=== PATIENT | female | born 1945 | race Caucasian/White ===

== ENCOUNTER → 2018-01-06 15:21 | Outpatient (CLI) | payer MEDICARE, BC, OTHER, SELFPAY ==
[2018-01-06 16:49] LABS: TSH (W/Ref FT4) 2.27 uIU/mL (0.358-3.74)
[2018-01-07 06:35] LABS: Vitamin D 25 Total 55.4 ng/ml (30-100)
== END ==
PROVIDERS: PCP Nurse Practitioner Family; Visit Provider Nurse Practitioner Family
DX: E55.9 Vitamin D deficiency, unspecified (principal); E03.9 Hypothyroidism, unspecified
CPT/HCPCS: 36415; 82306; 84443

== ENCOUNTER 2018-01-26 13:20 | Outpatient (RCR) | payer MEDICARE, BC, OTHER, SELFPAY ==
--- NOTE | 2018-01-26 13:30 | IE_ITS ---
Date: 01/26/18 Referring: STARR Leblanc M.D. Diagnosis: LBP, radiating L lateral leg P.T. Diagnosis: Same along with trochanteric bursitis of the L hip. SUBJECTIVE: History of Present Illness: Jordan complains of intermittent discomfort throughout the lateral aspect of the L hip, thigh and lower leg, occasional LBP. This generally occurs when standing after prolonged sitting or lying, as well as when taking the first dozen steps or so, She tends to feel better with short distance walking, increases with prolonged walking and standing. Does not generally have pain in sitting position. Will occasionally awaken her from a sound sleep, especially if lying on her L side. No pain with coughing or sneezing. The patient is a 72 year old female who has had episodic LBP, has had chiropractic treatments on a regular basis throughout the years. In May, she slipped on ice and fell and traumatized her low back. This eventually resolved. She was doing fine until 6 months ago when she developed an insidious onset of L sciatica. No different now than at onset. Has had a few chiropractic treatments and some massage therapy. No imaging tests. Pain Ratin/10 Pain Location: throughout the L lower lumbar area to the lateral aspect of the L hip, thigh, lower leg, occasionally into the knee,. Prior Level of Function: Independent with all ADL's. Current Level of Function: Discomfort with lifting heavy weights from the floor , walking for more than a 1/4 mile, standing for more than 1/2 hour as well as traveling for long distances. Previous Treatment: Chiropractic and massage therapy. 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 Works 2 days a week at the [employer]. Comorbidities: Hypertension, hx of breast cancer, hypothyroidism, osteoarthritis and kidney problems. Falls in the last year: ____ No __X__Yes - How many? __IN May__ - (if over 2, balance SM needs to be completed) Reported hospitalizations in the last year - __X__ No ____ Yes - Dates of admission/reason: Medications: Anti-hypertensives, Levothyroxine Quality of Life: ____ Excellent __X__ Good ____ Fair ____ Poor Standardized Measures: MOLBPDQ: __30%__ OBJECTIVE: Posture: (-) lateral shift, mild thoracic kyphosis. Observation: (behavior, atrophy, skin color, etc.) Pleasant, no abnormal pain behavior noted. Gait: Ambulates without antalgia, is able to walk on heel and toes without weakness. Palpation: Has tenderness to palpation throughout the L pelvic brim, over the QL, over the piriformis, gluteus medius, particularly over the greater trochanter of L hip when compared to the R. ROM: Her lumbar movements flexion distance between fingertips and floor is 4-5 with end range drawing throughout the hamstring, extension is at +15 degrees and non-painful. Sidebending to the R causes some drawing throughout the L pelvic brim and sidebending to the L causes drawing throughout the R pelvic brim. Hypomobile with sidegliding, but non-painful. Her AA hip motion is non-irritable as well as knee motion Joint Accessory Motion: Hypomobility with PA glides to the thoracic and lumbar spine, but these are non-painful. Strength: Has full motor control throughout with some mild weakness with the L gluteus medius and herlinda at +4 to -5/5. (-) active prone extension. Neuro: Hyporeflexive. Sensation is intact to light touch. Motor 5/5. Special Tests: (-) SLR bilaterally with hamstring length at approximately 70 degrees. (-) Obers test, (-) slump test. Treatment: Today consisted of the evaluation along with development of a home program. IE: [id number] Therapeutic procedures ([id number]). Direct treatment time: 60 MINS Total treatment time: 60 MINS ASSESSMENT: Patient is a 72-year-old FEMALE, referred for PT services with the diagnosis of L sciatica. Patient presents with clinical signs and symptoms consistent with diagnosis along with trochanteric bursitis of the L hip, as demonstrated by the following impairment level findings: Localized tenderness throughout the L lumbopelvic structures, but particularly over the greater trochanter of the L hip. Impairments are contributing to the following functional limitations: Difficulty standing more than 1/2 hour, walking for more than 1/2 mile. Patient is assessed as: __X__ Low 46657 ____ Moderate 28452 ____ High 01850 complexity, based on the following: History: (list): 6 month hx of L sciatica, probably related to a trochanteric bursitis, along with other myofascial trigger points throughout the lumbopelvic region. See comorbidities and social history. Examination: (list): x See above for functional limitations and impairments. Presentation: Stable . X Evolving Unstable Decision-Making: X Low complexity X Moderate complexity High complexity % Disability based on MOLBPDQ of 30%f __x__ Patient requires skilled PT intervention to remediate the above functional limitations to return to: __x__ Premorbid level of function Prognosis: ____ Excellent __x__ Good ____ Fair ____ Poor G-Codes (fill in modifier after appropriate code): Patient's primary functional limitation is in the category of: __X__ Mobility - walking and moving around : [id number] Projected goal: __X__ Mobility - walking and moving around: [id number] STG: __6__ weeks. 1: Clear out the myofascial trigger points of the lumbopelvic region,along with strengthening the L hip musculature, particularly gluts and core in hopes she will be able to walk greater than 1 mile and stand for greater than 1 hour. 2: Sleep without interruption due to pain. LTG: __12__ weeks. 1: Return to premorbid level of function. PLAN: Session today consisted of the evaluation along with issuing her a written and illustrated HEP consisting of gentle soft tissue stretching to the lumbopelvic ITB region along with strengthening exercises to the gluts, ice the trochanteric area of the L hip as needed. Her as a tens unit, she can try that also, see if it gives her symptomatic relief. She may benefit from nsaids, I encourage her to discuss this with her PCP. I will see her 2x a week for the next 2 weeks for manual mobilization of soft tissue structures to clear out the myofascial trigger point, eventually core and hip strengthening exercises. Modify program as her symptoms tolerate. Thank you for this referral. Please do not hesitate to contact me with any questions or concerns regarding this patient's plan of care. *Mei, please sign this evaluation if you are in agreement with the above stated goals and plan of care. cc: STARR Leblanc
== END 2018-01-29 23:59 | disposition home or self-care (01) ==
LOC: PT 13:20
PROVIDERS: PCP Nurse Practitioner Family; Referring Provider Internal Medicine Hematology & Oncology; Visit Provider Internal Medicine Hematology & Oncology
DX: M54.5 Low back pain (principal); M70.62 Trochanteric bursitis, left hip
CPT/HCPCS: 97110; 97161; G8978

== ENCOUNTER 2018-03-22 15:54 | Outpatient (CLI) | payer MEDICARE, BC, OTHER, SELFPAY ==
--- NOTE | 2018-03-22 11:59 | DI.RAD_ITS ---
SYMPTOMS/DIAGNOSIS: ACUTE LOW BACK PAIN, S/P FALL, ? FX, M54.5 LUMBAR SPINE: Comparison is made with [id number]. Degenerative disc changes are seen, greatest at L 4 - 5 on the right where there are prominent endplate osteophytes and asymmetric disc space narrowing. There is only a minimal scoliosis. There is mild narrowing of the L 2 - 3 disc space mainly anteriorly. Endplate osteophytes are seen throughout. The findings are not significantly changed from the previous exam. No spondylolysis or spondylolisthesis is seen. The aorta is calcified and normal in diameter. IMPRESSION: Stable degenerative changes, greatest at L 4 - 5.
== END 2018-03-22 16:14 ==
PROVIDERS: PCP Nurse Practitioner Family; Visit Provider Nurse Practitioner Family
DX: M54.5 Low back pain (principal); M51.36 Other intervertebral disc degeneration, lumbar region; M25.78 Osteophyte, vertebrae
CPT/HCPCS: 72110

== ENCOUNTER 2018-04-23 00:33 | Outpatient (CLI) | payer MEDICARE, BC, OTHER, SELFPAY ==
--- NOTE | 2018-04-23 09:40 | DI.MRI_ITS ---
SYMPTOM/DIAGNOSIS: SIZE< DATES, G26.843 SYMPTOM/DIAGNOSIS: RADICULAR PAIN WITH BLADDER INCONTINENCE M54.16 MRI LUMBAR SPINE: Comparison is made with plain films dated 22 March 2018. T1, T2 and STIR sagittal, T1, T2 axial and T1 coronal sequences were performed. There is a compression fracture of L3 of the superior end plate with marrow edema. There is 3 mm of retropulsion resulting in mild canal stenosis in the AP dimension No underlying pathologic lesion is visible. No additional compression fractures are seen.There are degenerative disc changes throughout, greatest at L4-5. There is no spondylolysis or spondylolisthesis. The conus medullaris appears intact. Bilateral renal cysts are incidentally noted. IMPRESSION: Compression fracture of L3 approximately 25% loss of height. There is a 3 mm posterior retropulsion at the superior end plate creating a mild central canal stenosis.
--- NOTE | 2018-04-23 17:01 | DI.VRAD_ITS ---
EXAM: MR Lumbar Spine Without Intravenous Contrast. EXAM DATE/TIME: 04/23/2018 9:38 AM CLINICAL HISTORY: 72 years old, female; Pain; Low back pain; Patient HX: Radicular pain with bladder incontinence. TECHNIQUE: Multiplanar magnetic resonance images of the lumbar spine without intravenous contrast. COMPARISON: CR XR lumbar spine complete 03/22/2018 11:39 AM FINDINGS: Vertebrae: Acute compression fracture superior endplate L3, with 25-30% loss of anterior height. 2-3 mm retropulsion with mild resulting central canal narrowing. No other fractures identified. Marrow: Degenerative endplate marrow signal changes. Alignment anatomic. Spinal cord: Normal signal. No cord compression. DISCS/SPINAL CANAL/NEURAL FORAMINA: T12-L1: No stenosis. L1-L2: Degenerative disc and spondylitic changes. 2 mm broad-based central disc protrusion. No central canal stenosis. Mild foraminal narrowing. L2-L3: Degenerative disc and spondylitic changes. Central annular tear without focal herniation. Acute L3 compression fracture noted with 2-3 mm of retropulsion. Mild multifactorial central canal narrowing. No significant foraminal stenosis. L3-L4: Degenerative disc and spondylitic changes. Borderline mild central canal narrowing. Mild bilateral foraminal stenosis. L4-L5: Degenerative disc and spondylitic changes. Asymmetric right-sided disc bulge and endplate ridging. Mild central canal stenosis. Moderate bilateral foraminal stenosis. L5-S1: Degenerative disc and spondylitic changes. Mild right and [id number] left foraminal stenosis. Soft tissues: Unremarkable. IMPRESSION: 1. Acute compression fracture superior endplate L3, with 25-30% loss of anterior height. 2-3 mm retropulsion with mild resulting central canal narrowing. 2. Degenerative changes as described. Dictated and Authenticated by: Kraig Madden MD. Ordering:JONATHAN ELLISON MD
== END 2018-04-23 00:53 ==
PROVIDERS: PCP Nurse Practitioner Family; Visit Provider Family Medicine
DX: M54.16 Radiculopathy, lumbar region (principal); M48.56XD Collapsed vertebra, not elsewhere classified, lumbar region, subsequent encounter for fracture with routine healing; R39.81 Functional urinary incontinence; M48.061 Spinal stenosis, lumbar region without neurogenic claudication; M47.26 Other spondylosis with radiculopathy, lumbar region
CPT/HCPCS: 72148

== ENCOUNTER 2018-05-13 01:32 | Outpatient (CLI) | payer MEDICARE, BC, OTHER, SELFPAY ==
--- NOTE | 2018-05-13 13:42 | DI.US_ITS ---
SYMPTOMS/DIAGNOSIS: SENSATION OF INCOMPLETE EMPTYING, DOUBLE VOIDING, R33.9, S/P BLADDER SURGERY FOR POLYPS IN 1969 RENAL ULTRASOUND: Routine examination. The right kidney measures 9.8 cm long. There is normal blood flow. No solid renal mass, calculus or obstruction is seen. There is a 2.4 x 2.3 x 1.7 cm simple cyst in the mid pole of the right kidney. The left kidney measures 9.2 cm long. No solid renal mass, calculus or obstruction is seen. There is a 3.8 x 3.5 x 3.7 cm cyst in the inferior pole of the left kidney. The prevoid urinary bladder volume is 30 cc. The bladder wall appears smooth. Both ureteral jets were visualized. Postvoid urinary bladder volume was 3 cc. IMPRESSION: 1. No significant postvoid urinary bladder volume. 2. Bilateral renal cysts.
== END 2018-05-13 01:52 ==
PROVIDERS: PCP Nurse Practitioner Family; Visit Provider Nurse Practitioner Family
DX: R33.9 Retention of urine, unspecified (principal); R39.198 Other difficulties with micturition; N28.1 Cyst of kidney, acquired
CPT/HCPCS: 76770

== ENCOUNTER 2019-02-07 11:10 | Outpatient (CLI) | payer MEDICARE, BC, OTHER, SELFPAY ==
[2019-02-07 13:44] LABS: ALT 34 U/L (14-59); AST 35 U/L (15-37); Albumin 4.1 g/dL (3.4-5.0); Alkaline Phosphatase 107 U/L (46-116); BUN 15 mg/dL (7-18); Bilirubin, Total 0.8 mg/dL (0.2-1.0); Calcium 9.8 mg/dL (8.5-10.1); Calculated LDL 99 mg/dL; Chloride 97 mmol/L (98-107); Cholesterol 203 mg/dL (50-200); Glucose 83 mg/dL (70-100); HDL Cholesterol 89 mg/dL (40-60); Potassium 3.5 mmol/L (3.5-5.1); Sodium 138 mmol/L (136-145); TSH (W/Ref FT4) 5.99 uIU/mL (0.36-3.74); Total Protein 7.5 g/dL (6.4-8.2); Triglyceride 78 mg/dL (30-150)
[2019-02-07 14:08] LABS: FREE T4 1.19 ng/dL (0.76-1.46)
== END 2019-02-07 11:30 ==
PROVIDERS: PCP Nurse Practitioner Family; Visit Provider Nurse Practitioner Family
DX: I10 Essential (primary) hypertension (principal); E03.9 Hypothyroidism, unspecified; E78.5 Hyperlipidemia, unspecified
CPT/HCPCS: 36415; 80053; 80061; 84439; 84443

== ENCOUNTER 2019-04-04 13:42 | Outpatient (CLI) | payer MEDICARE, BC, OTHER, SELFPAY ==
[2019-04-04 15:22] LABS: TSH (W/Ref FT4) 3.89 uIU/mL (0.36-3.74)
[2019-04-04 15:47] LABS: FREE T4 1.19 ng/dL (0.76-1.46)
== END 2019-04-04 14:02 ==
PROVIDERS: PCP Nurse Practitioner Family; Visit Provider Nurse Practitioner Family
DX: E03.9 Hypothyroidism, unspecified (principal)
CPT/HCPCS: 36415; 84439; 84443

== ENCOUNTER → 2019-05-12 11:08 | Outpatient (BNVA) | payer MEDICARE, BC, OTHER, SELFPAY | PROVIDERS: PCP Nurse Practitioner Family; Referring Provider Nurse Practitioner Family; Visit Provider Physical Therapy Assistant | DX: Z12.11 Encounter for screening for malignant neoplasm of colon (principal); Z86.010 Personal history of colon polyps; I12.9 Hypertensive chronic kidney disease with stage 1 through stage 4 chronic kidney disease, or unspecified chronic kidney disease; N18.3 Chronic kidney disease, stage 3 (moderate) ==

== ENCOUNTER 2019-05-23 07:52 | Day surgery (SDC) | payer MEDICARE, BC, OTHER, SELFPAY ==
[2019-05-23 08:04] VITALS: BP 168/88; PULSE 71; RESP 16; TEMP 36.4; O2SAT 98
[2019-05-23] MEDS: Lactated Ringers 1,000 ML 80 ML IV (08:36)
--- NOTE | 2019-05-23 09:11 | W.PM.DSUDISC ---
Discharge Plan Disposition Patient Disposition: HOME Condition: Good Discharge Details Reason For Visit: Colonoscopy Attending Provider: Elva Mckeon Primary Care Provider: Mei Herrera Home Meds and New Rx's Prescriptions: Continued losartan 25 mg tablet 25 mg PO DAILY Qty: 90 RF: 3 ibuprofen 600 mg tablet 600 mg PO TID PRN (Reason: pain) Qty: 30 RF: 0 levothyroxine 100 mcg tablet 100 mcg PO DAILY Qty: 90 RF: 0 mometasone [Nasonex] 50 mcg/actuation spray,non-aerosol 1 - 2 spray NS DAILY PRN (Reason: nasal congestion) Qty: 17 RF: 3 aspirin [Aspir-81] 81 MG tablet,delayed release (DR/EC) 81 mg PO DAILY RF: 0 omega-3 fatty acids-fish oil 1 EACH capsule 1 ea PO DAILY RF: 0 Os-Brandan 500 + D3 1 EACH tablet,chewable 1 ea PO DAILY RF: 0 vitamin A 8,000 UNIT capsule 8,000 units PO DAILY RF: 0 Varicella-Zoster Ge/As01b/Pf [Shingrix Vial Kit] 50 MCG INJ 50 mcg IM ONCE Qty: 1 RF: 1 fluoxetine 20 mg capsule 20 mg PO DAILY Qty: 90 RF: 3 atorvastatin 80 mg tablet 80 mg PO DAILY Qty: 90 RF: 3 omeprazole 20 mg capsule,delayed release(DR/EC) 20 mg PO DAILY Qty: 90 RF: 3 hydrochlorothiazide [Microzide] 12.5 mg capsule 12.5 mg PO DAILY Qty: 90 RF: 3 trazodone 50 mg tablet 50 mg PO HS Qty: 90 RF: 3 acetaminophen [Tylenol Extra Strength] 500 mg Tablet 500 mg PO Q4H PRNRF: 0 naproxen sodium [Aleve] 220 mg Capsule 220 mg PO Q12H PRNRF: 0 Discontinued polyethylene glycol 3350 17 gram/dose powder 238 g PO ONCE Qty: 238 RF: 0 bisacodyl [Dulcolax (bisacodyl)] 5 mg tablet,delayed release (DR/EC) 5 mg PO ONCE Qty: 4 RF: 0 Discharge Instructions Additional Instructions: Findings: Two small polyps were removed. My office will contact you with biopsy results. Follow up: Plan for a colonoscopy in 3 years (pending biopsy results.) Please call if you develop: fevers >101.5 Nausea or Vomiting Abdominal pain that is not transient DAY SURGERY UNIT POST COLONOSCOPY INSTRUCTIONS 1. Because there will be medication in your system for the next 24 hours, you may feel a little sleepy. Your coordination will be affected. Therefore: a. Do not drive or operate dangerous equipment for 24 hours. b. Do not drink alcohol beverages for 24 hours (not even beer). c. Plan to go home and rest for the day. 2. Generally there are no restrictions on your activity after a day or so has gone by, but you may feel a bit fatigued for a few days. 3 After you arrive home you may have a light meal and return to a normal diet as you can tolerate it without feeling sick to your stomach. 4. After surgery, you may feel pain or discomfort. This should be only transient, but if it persists please contact your doctor. 5. If there are any questions regarding the findings of your procedure, please feel free to contact your doctor. 6. If you are unable to contact your doctor with a problem, contact the hospital at [phone]. 7. Continue all your regular medications unless directed otherwise. I understand the above instructions and have no questions. Signature of Patient or Responsible Adult Escort Date/Time Name of Responsible Adult Escort Signature of Nurse Date/Time Activity:: Activity as Tolerated Diet:: As Tolerated Discharge Orders Discharge Orders: Discharge Order (Routine); Ordered 05/23/19 Ordered By: Elva Mckeon DS: Diagnosis Discharge Diagnosis (1) Colon polyps: Status: Acute
--- NOTE | 2019-05-23 09:31 | BOWEL_PTH ---
PATIENT: Kourtney Aguilar LOC: [facility] U#:[id number] AGE/SX: 73/F ROOM: RE05/23/[address]: Elva Mckeon MD : 1945 BED: DIS: 05/23/2019 SPEC #: [id number] RECD: 05/23/19 13:05 STATUS: GLORIA REQ #: [id number] LITO: 05/23/19 09:[address]: Elva Mckeon DEPT: Surgical Specimen RECD BY: Lorraine Martinez ENTERED: 05/23/19 13:05 SP TYPE: Bowel OTHR DR: Mei Herrera APRN Tissues: 1 - BIOPSY BOWEL Procedures: GROSS AND MICRO LEVEL 4 Comments: [id number]
[2019-05-23 10:35] VITALS: BP 154/83; PULSE 66; RESP 16; TEMP 36.2; O2SAT 98
--- NOTE | 2019-05-24 09:45 | COLE_ITS ---
REPORT OF OPERATIVE PROCEDURE DATE OF PROCEDURE May 23, 2019 PREOPERATIVE DIAGNOSES History of colon polyps. POSTOPERATIVE DIAGNOSES Colon polyps. PROCEDURES Colonoscopy with snare polypectomy. SURGEON Elva Mckeon M.D. ANESTHESIA General. INDICATION This is a 73-year-old woman whose last colonoscopy in 2017 done at [facility] showed polyps. She was a dvised to have a followup in one year due to the presence of multiple polyps. She has no symptoms or family history of colon cancer. PROCEDURE DESCRIPTION She was placed in the left Poole position. Propofol was titrated to sedation. Digital rectal examinati on revealed no abnormalities. The scope was advanced to the cecum without difficulty. The ileocecal v alve and the appendiceal orifice were clearly identified. At the appendiceal orifice, there was polyp oid tissue that was removed with the snare without cautery due to its delicate location. I did place a hemostatic clip to prevent bleeding since cautery was not utilized. The specimen was retrieved for Pathology. The scope was slowly withdrawn with a diminutive polyp identified in the ascending colon. This was removed with the snare, but not retrieved due to its small size. No other abnormalities were seen throughout the ascending, transverse, descending, sigmoid colon or rectum including on retrofle xed view. I did not see any areas of tattooing. She tolerated the procedure well and was stable to Re covery. It is anticipated she will need a colonoscopy in three years pending biopsy results. CC: Mei Herrera N.P.
== END 2019-05-23 11:40 | disposition home or self-care (01) ==
PROVIDERS: PCP Nurse Practitioner Family; Visit Provider Surgery
PROC: 0DJD8ZZ Inspection of Lower Intestinal Tract, Via Natural or Artificial Opening Endoscopic (ICD-10-PCS; CPT 45378; principal; 2019-05-23 09:00)
DX: D12.0 Benign neoplasm of cecum; I10 Essential (primary) hypertension; N18.3 Chronic kidney disease, stage 3 (moderate); Z12.11 Encounter for screening for malignant neoplasm of colon; D12.6 Benign neoplasm of colon, unspecified
CPT/HCPCS: 45385; 88305

== ENCOUNTER → 2019-06-09 10:08 | Outpatient (BNVA) | payer MEDICARE, BC, OTHER, SELFPAY | PROVIDERS: PCP Nurse Practitioner Family; Referring Provider Nurse Practitioner Family; Visit Provider Surgery | DX: D12.0 Benign neoplasm of cecum (principal); I12.9 Hypertensive chronic kidney disease with stage 1 through stage 4 chronic kidney disease, or unspecified chronic kidney disease; N18.3 Chronic kidney disease, stage 3 (moderate); Z48.815 Encounter for surgical aftercare following surgery on the digestive system | CPT/HCPCS: 99214 ==

== ENCOUNTER 2019-10-28 08:06 | Outpatient (CLI) | payer MEDICARE, BC, OTHER, SELFPAY ==
[2019-10-29 12:09] LABS: COVID-19 RT-PCR UVMMC Result Negative (Negative)
== END 2019-10-28 08:26 ==
PROVIDERS: PCP Nurse Practitioner Family; Visit Provider Surgery
DX: Z11.59 Encounter for screening for other viral diseases (principal); Z01.818 Encounter for other preprocedural examination
CPT/HCPCS: U0003

== ENCOUNTER 2019-11-01 06:14 | Inpatient (IN) | payer MEDICARE, BC, OTHER, SELFPAY ==
[2019-11-01] VITALS (8 sets, daily range): BP systolic 99–150; BP diastolic 41–86; PULSE 71–78; RESP 12–26; TEMP 36.3–36.5; O2SAT 96–100
[2019-11-01] MEDS: metroNIDAZOLE 1,000 MG/200 ML BAG 200 MG IVPB (06:50)
[2019-11-01] MEDS: Lactated Ringers 1,000 ML 80 ML IV (06:50)
--- NOTE | 2019-11-01 06:56 | W.PM.HP.N ---
Date of service: 11/01/19 Time of Service: 06:57 Assessment and Plan Assessment and plan (1) Cecal polyp: Status: Acute Assessment and plan: We discussed the options of a colonoscopy in 6-12 months or excision of the area with a laparoscopic cecectomy. She has already had a polyp removed from the same location 2 years ago and prefers not to have such frequent colonoscopies. We agreed to proceed with surgery. The risks of infection, bleeding, hernia, leak discussed. There is a small possibility a small incision will need to be made if an ileocecectomy needs to be done. She should not lift more than 15 pounds for one month postop. She will still need to have a colonoscopy in 3 years due to the presence of polyps in other locations. History of Present Illness Narrative: This patient had a polyp removed in the cecum earlier this year at the appendiceal orifice and showed a tubulovillous adenoma. This was not aggressively removed due to it's location. Her colonoscopy report from 12/2016 at [facility] is reviewed. A 15mm appendiceal orifice polyp was removed at that time with pathology showing a tubular adenoma. Additional polyps from the cecum, ascending and descending colon were removed with benign pathology. No FH of colon cancer or symptoms. Review of Systems All systems reviewed & are unremarkable except as noted in HPI and below [facility] Medical History Allergic rhinitis, unspecified (Chronic 08/13/12) Breast cancer Chronic kidney disease (CKD), stage III (moderate) (Chronic) 10/2014: renal US neg, cysts; 05/2018 renal US: B/L renal cysts Compression fracture of lumbar vertebra (Resolved ~2017) L3; s/p vertebral augmentation ([facility]) Depressive disorder (Chronic 08/04/11) Generalized osteoarthrosis, unspecified site (Chronic 08/04/11) HLD (hyperlipidemia) Hot flashes (Resolved 02/09/15) H/o gabapentin Rx; titrated off 2018 & no recurrence HTN (hypertension) Hyperlipidemia (Chronic 08/19/13) On high intensity statin therapy Hypothyroidism Hypothyroidism, unspecified (Chronic 08/13/12) Malignant neoplasm of breast (female), unspecified site (Resolved 08/04/11) Dr Elvis foley [facility] L mastectomy 11/24/2000 chem Rx, 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 reports tummy tuck at same time to make breast History of bilateral cataract extraction (Resolved) Hx of repair of rotator cuff (Acute) Right Tonsillectomy (~1967) Family History Brother Diabetes Heart disease S/p bypass surgery Brother No problems noted. Social History Smoking/Tobacco Use Status: Former Tobacco Use Quit Date: 06/01/79 Alcohol Intake: current Alcohol Intake frequency: 0-2 drinks per day Alcohol type: hard liquor Substance use type: does not use Caregiver/Support person: No Communication Needs: None Pets and animals: Yes Pets and animals: cat(s) Current gender identity: female What type of physical activity do you participate in: other Details: stretches Frequency: daily Seatbelt use: always Water heater temp set <120 deg: Yes Working smoke detector in home: Yes Fire extinguisher in home: Yes Carbon monox detector in home: Yes Do you feel safe at home: Yes Meds Home Medications and Allergies Home Medications Medication Instructions Recorded Confirmed Type Os-Brandan 500 + D3 1 ea PO DAILY tab.chew 08/03/12 11/01/19 History aspirin [Aspir-81] 81 mg PO DAILY tab-cap 08/03/12 11/01/19 History omega-3 fatty acids-fish oil 1 ea PO DAILY 08/03/12 11/01/19 History vitamin A 8,000 units PO DAILY tab-cap 05/15/17 11/01/19 History Varicella-Zoster Ge/As01b/Pf 50 mcg IM ONCE #1 kit 11/13/17 11/01/19 Clinic [Shingrix Vial Kit] ibuprofen 600 mg tablet 600 mg PO TID PRN #30 tab 06/02/18 11/01/19 Rx hydrochlorothiazide 12.5 mg capsule 12.5 mg PO DAILY #90 tab 12/06/18 11/01/19 Rx trazodone 50 mg tablet 50 mg PO HS #90 tab-cap 12/06/18 11/01/19 Rx losartan 25 mg tablet 25 mg PO DAILY #90 tab-cap 04/06/19 11/01/19 Rx acetaminophen [Tylenol Extra 500 mg PO Q4H PRN 05/19/19 11/01/19 History Strength] naproxen sodium [Aleve] 220 mg PO Q12H PRN 05/19/19 11/01/19 History fluoxetine 20 mg capsule 20 mg PO DAILY #90 tab-cap 06/29/19 11/01/19 Rx mometasone 50 mcg/actuation nasal 1 - 2 spray NS DAILY PRN #17 gm 07/07/19 11/01/19 Rx spray levothyroxine 100 mcg tablet 100 mcg PO DAILY #90 tab-cap 09/23/19 11/01/19 Rx omeprazole 20 mg capsule,delayed 20 mg PO DAILY #90 tab-cap 10/13/19 11/01/19 Rx release atorvastatin 80 mg PO HS 10/28/19 11/01/19 History Allergies Allergy/AdvReac Type Severity Reaction Status Date / Time Sulfa (Sulfonamide Allergy Severe TONGUE Verified 11/01/19 06:32 Antibiotics) SWELLING lisinopril AdvReac Intermediate COUGH NOTE Verified 11/01/19 06:32 DATED 04/06/19 Exam Narrative Exam Narrative: No acute distress, appears well Lungs CTA Heart RRR Abdomen soft, nontender, no masses or hernias Extremeties without edema COVID-19 Screening In the past 14 days, have you traveled outside of [place] or [place]?: NO
[2019-11-01] MEDS: ceFAZolin 2 GM/50 ML BAG IVPB (07:59)
[2019-11-01] MEDS: Bupivacaine 0.5% Pres-Free 30 ML VIAL (08:21)
--- NOTE | 2019-11-01 08:26 | BOWEL_PTH ---
PATIENT: Kourtney Aguilar LOC: [facility] U#:[id number] AGE/SX: 74/F ROOM: U.1 RE11/01/[address]: Elva Mckeon MD : 1945 BED: A DIS: 11/01/2019 SPEC #: [id number] RECD: 11/01/19 12:34 STATUS: GLORIA REQ #: [id number] LITO: 11/01/19 08:[address]: Elva Mckeon DEPT: Surgical Specimen RECD BY: Lorraine Martinez ENTERED: 11/01/19 12:35 SP TYPE: Bowel OTHR DR: Mei Herrera, JUANITA Tissues: 1 - BIOPSY BOWEL Procedures: GROSS AND MICRO LEVEL 4 Comments: [id number]
--- NOTE | 2019-11-01 08:57 | W.PM.DSUDISC ---
Discharge Plan Disposition Patient Disposition: HOME Condition: Good Discharge Details Reason For Visit: Laparoscopic cecectomy Attending Provider: Elva Mckeon Primary Care Provider: Mei Herrera Home Meds and New Rx's Prescriptions: New hydrocodone-acetaminophen 5-325 mg Tablet 1 tab PO Q4H PRN (Reason: Pain) Qty: 12 RF: 0 Continued losartan 25 mg tablet 25 mg PO DAILY Qty: 90 RF: 3 ibuprofen 600 mg tablet 600 mg PO TID PRN (Reason: pain) Qty: 30 RF: 0 aspirin [Aspir-81] 81 MG tablet,delayed release (DR/EC) 81 mg PO DAILY RF: 0 omega-3 fatty acids-fish oil 1 EACH capsule 1 ea PO DAILY RF: 0 Os-Brandan 500 + D3 1 EACH tablet,chewable 1 ea PO DAILY RF: 0 vitamin A 8,000 UNIT capsule 8,000 units PO DAILY RF: 0 Varicella-Zoster Ge/As01b/Pf [Shingrix Vial Kit] 50 MCG INJ 50 mcg IM ONCE Qty: 1 RF: 1 hydrochlorothiazide [Microzide] 12.5 mg capsule 12.5 mg PO DAILY Qty: 90 RF: 3 trazodone 50 mg tablet 50 mg PO HS Qty: 90 RF: 3 fluoxetine 20 mg capsule 20 mg PO DAILY Qty: 90 RF: 3 mometasone [Nasonex] 50 mcg/actuation spray,non-aerosol 1 - 2 spray NS DAILY PRN (Reason: nasal congestion) Qty: 17 RF: 3 levothyroxine 100 mcg tablet 100 mcg PO DAILY Qty: 90 RF: 3 omeprazole 20 mg capsule,delayed release(DR/EC) 20 mg PO DAILY Qty: 90 RF: 0 atorvastatin 80 mg tablet 80 mg PO HS RF: 0 acetaminophen [Tylenol Extra Strength] 500 mg Tablet 500 mg PO Q4H PRNRF: 0 naproxen sodium [Aleve] 220 mg Capsule 220 mg PO Q12H PRNRF: 0 Discharge Instructions Additional Instructions: The top bandage can be removed tomorrow. The steri strips will usually stick for about a week. When the edges start to curl up, they can be removed. It is okay to shower tomorrow, the water can run over the steri strips Do not swim or soak in a tub for two weeks Call for any concerns including fever, increased pain, vomiting, incision redness or drainage. Do not lift more than 15 pounds for two weeks. Walking and stairs are fine. Do not drive if on narcotic pain meds or if limited by pain. May use Tylenol alternating with ibuprofen for pain control. Ice is also an option. The maximum dose for Tylenol is 4000 mg/day. May use ibuprofen 800 mg every 8 hours as needed. If concerned about constipation, you may use a stool softener or milk of magnesia. Referrals: Elva Mckeon MD [ [facility] STAFF PHYSICIAN] - (Return in 10-14 days for a postop check) Activity:: Do not lift more than 15# for 2 weeks Remove Dressings/Wound Care:: 24 hours Shower/Bathe:: 24 hours Diet:: As Tolerated Discharge Orders Discharge Orders: Discharge Order (Routine); Ordered 11/01/19 Ordered By: Elva Mckeon DS: Diagnosis Discharge Diagnosis (1) Cecal polyp: Status: Acute
--- NOTE | 2019-11-01 09:15 | ROE_ITS ---
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 This was not in the location amenable to removal during colonoscopy. She also had a polyp removed there a few years ago. Procedure Description: The patient was placed supine on the operating table and after induction of general anesthetic had her left arm tucked and abdomen prepped and draped sterilely. She was noted to have well-healed incisions from a TRAM flap. A small infraumbilical incision was made after injecting local anesthetic. Incision was made in the fascia and 0 Vicryl sutures placed on either side. The abdomen was entered bluntly with a finger. The Mata port was held in place with the sutures and a CO2 pneumoperitoneum begun. A 5 mm port was placed in the suprapubic and right upper quadrant regions after injecting local anesthetic under direct visualization. Patient was rotated left side down. The appendix was tucked lateral to the cecum. I mobilized the appendix by taking down the peritoneal attachments with the LigaSure. The [place] was used to make an opening at the base of the appendix in the mesoappendix. The laparoscopic stapler was used to fire across the base of the cecum. The mesoappendix was then taken down with the vascular load of the stapler. The appendix was placed in Endo Catch bag and removed through the umbilical incision. I opened the specimen on the back table and the polyp was contained within the specimen right at the appendiceal orifice. This was sent to pathology. Inspection of the operative site revealed no bleeding. The ports were removed. The 0 Vicryl sutures were tied together at the umbilical fascia and a third suture placed with good closure. The skin of the port sites was closed with a 4-0 Monocryl subcuticular stitch.
[2019-11-01] MEDS: Acetaminophen 325 MG TAB 650 MG PO (10:31)
== END 2019-11-01 12:30 | disposition home or self-care (01) | DRG 331 ==
LOC: SUR 09:00 → PDS 12-27 10:10
PROVIDERS: Admitting Provider Surgery; PCP Nurse Practitioner Family; Visit Provider Surgery
PROC: 0DTJ4ZZ Resection of Appendix, Percutaneous Endoscopic Approach (ICD-10-PCS; CPT 44970; principal; 2019-11-01 07:30)
DX: D12.0 Benign neoplasm of cecum (principal); N18.3 Chronic kidney disease, stage 3 (moderate); I12.9 Hypertensive chronic kidney disease with stage 1 through stage 4 chronic kidney disease, or unspecified chronic kidney disease
CPT/HCPCS: 44204; 88305; NC; J0690; J1100; J1885; J2001; J2405; J2704; J3010

== ENCOUNTER → 2019-11-14 09:39 | Outpatient (BNVA) | payer MEDICARE, BC, OTHER, SELFPAY | PROVIDERS: PCP Nurse Practitioner Family; Referring Provider Nurse Practitioner Family; Visit Provider Surgery | DX: Z48.815 Encounter for surgical aftercare following surgery on the digestive system (principal) ==

== ENCOUNTER 2020-10-02 02:39 | Outpatient (CLI) | payer MEDICARE, BC, OTHER, SELFPAY ==
[2020-10-02 14:58] LABS: Abs Immature Grans 0.01 10^3/uL (0.0-0.06); Absolute Basophil Count 0.01 10^3/uL (0.0-0.2); Absolute Eosinophil Count 0.05 10^3/uL (0.0-0.7); Absolute Lymphocyte Count 1.81 10^3/uL (1.2-3.4); Absolute Monocyte Count 0.42 10^3/uL (0.1-0.8); Absolute Neutrophil Count 2.71 10^3/uL (1.2-6.7); Basophils % 0.2; HCT 43.2 % (36.0-46.0); HGB 14.4 g/dL (11.2-15.7); Immature Grans % 0.2; Lymphocytes % 36.1; MCH 31.7 pg (27.0-33.0); MCHC 33.3 % (32.0-36.0); MCV 95.2 fL (80-95); Monocytes % 8.4; Neutrophils % 54.1; Nucleated RBC 0 %; Platelet Count 290 10^3/uL (130-400); RBC 4.54 10^6/uL (3.93-5.22); RDW 12.5 % (11.7-14.6); RDW-SD 43.6 fL; WBC 5.01 10^3/uL (4.4-10.8)
[2020-10-02 16:21] LABS: ALT 44 U/L (14-59); AST 30 U/L (15-37); Albumin 4.1 g/dL (3.4-5.0); Alkaline Phosphatase 124 U/L (46-116); Anion Gap 11.4 mmol/L (3-11); BUN 14 mg/dL (7-18); Bilirubin, Total 0.7 mg/dL (0.2-1.0); CO2 32.6 mmol/L (21.0-32.0); Calcium 9.6 mg/dL (8.5-10.1); Calculated LDL 90 mg/dL (<100); Chloride 97 mmol/L (98-107); Cholesterol 174 mg/dL (<200); Estimated GFR 53.91 (mL/min/1.73m2); Glucose 87 mg/dL (74-106); HDL Cholesterol 66 mg/dL (40-60); Potassium 3.1 mmol/L (3.5-5.1); Sodium 141 mmol/L (136-145); TSH (W/Ref FT4) 0.09 uIU/mL (0.36-3.74); Total Protein 7.4 g/dL (6.4-8.2); Triglyceride 94 mg/dL (<150)
[2020-10-02 16:53] LABS: FREE T4 1.58 ng/dL (0.76-1.46)
== END 2020-10-02 02:40 | disposition home or self-care (01) ==
LOC: LBO 02:40
PROVIDERS: PCP Nurse Practitioner Family; Visit Provider Nurse Practitioner Family
DX: I10 Essential (primary) hypertension (principal); E03.9 Hypothyroidism, unspecified; E78.5 Hyperlipidemia, unspecified
CPT/HCPCS: 80053; 80061; 84439; 84443; 85025

== ENCOUNTER 2021-01-07 03:46 | Outpatient (CLI) | payer MEDICARE, BC, OTHER, SELFPAY ==
[2021-01-07 12:01] LABS: TSH (W/Ref FT4) 2.87 uIU/mL (0.36-3.74)
== END 2021-01-07 03:47 | disposition home or self-care (01) ==
PROVIDERS: PCP Nurse Practitioner Family; Visit Provider Nurse Practitioner Family
DX: E03.9 Hypothyroidism, unspecified (principal); E87.5 Hyperkalemia
CPT/HCPCS: 36415; 84132; 84443

== ENCOUNTER 2021-07-22 17:03 | Emergency (ER) | payer MEDICARE, BC, OTHER, SELFPAY ==
[2021-07-22 17:13] VITALS: BP 105/50; PULSE 72; TEMP 36.1; O2SAT 94
--- NOTE | 2021-07-22 17:29 | ED.GENADUL_ITS ---
Discharge Plan Disposition Patient Disposition: HOME Condition: Improving Discharge Details Clinical Impression: Fall at home, Contusion of lower back Primary Care Provider: Mei Herrera ED Provider: Tiara Llanes Home Meds and New Rx's Prescriptions: New prednisone 20 mg tablet See Rx Instructions .ROUTE .COMPLEX Qty: 12 0RF Rx Instructions: Take 3 tabs daily for 2 days, then 2 tabs daily for 2 days, then 1 tab daily for 2 days Continued calcium carbonate-vitamin D3 600 mg(1,500mg) -500 unit capsule 600 cap PO DAILY 0RF hydrochlorothiazide 12.5 mg capsule 12.5 mg PO DAILY Qty: 90 3RF levothyroxine 88 mcg tablet 88 mcg PO DAILY Qty: 90 3RF Rx Instructions: Administer in the morning on an empty stomach, at least 30-60 minutes before food losartan 25 mg tablet 25 mg PO DAILY Qty: 90 3RF mometasone [Nasonex] 50 mcg/actuation spray,non-aerosol 1 - 2 spray NS DAILY PRN (Reason: nasal congestion) Qty: 3 3RF ibuprofen 600 mg tablet 600 mg PO TID PRN (Reason: pain) Qty: 30 0RF Rx Instructions: Trial for inflamm pain aspirin [Aspir-81] 81 MG tablet,delayed release (DR/EC) 81 mg PO DAILY 0RF omega-3 fatty acids-fish oil 1 EACH capsule 1 ea PO DAILY 0RF vitamin A 8,000 UNIT capsule 8,000 units PO DAILY 0RF fluoxetine 20 mg capsule 20 mg PO DAILY Qty: 90 3RF atorvastatin 80 mg tablet 80 mg PO DAILY Qty: 90 3RF omeprazole 20 mg capsule,delayed release(DR/EC) 20 mg PO DAILY Qty: 90 3RF Label Comments: Pt takes every other day. Rx Instructions: Take 20 mg once daily in the morning on an empty stomach at least 30 minutes before first meal trazodone 50 mg tablet 50 mg PO HS Qty: 90 3RF zolpidem 5 mg tablet 5 mg PO QHS PRN0RF acetaminophen [Tylenol Extra Strength] 500 mg Tablet 500 mg PO Q4H PRN0RF naproxen sodium [Aleve] 220 mg Capsule 220 mg PO Q12H PRN0RF No Action methocarbamol 500 mg tablet 500 mg PO Q6H PRN (Reason: muscle spasm) Qty: 30 0RF Rx Instructions: Continue x 1 week for mm spasm relief Discharge Instructions Instructions: Contusion in Adults (ED) Additional Instructions: Your imaging today is reassuring and shows no evidence of new fractures. There was no acute finding on the CT scan of your head today. Your lab work and EKG is reassuring and shows no evidence of acute concerning or significant findings. Apply ice to the affected area several times daily for 20 minutes at a time. Alternate tylenol and motrin as needed and directed for pain. Take the oxycodone for pain not relieved with Tylenol or Motrin. You are being sent home with prescriptions for muscle relaxers and steroids. Call your primary care doctor's office tomorrow to schedule a follow-up appointment for reevaluation. Return immediately to the emergency department if you develop any worsening or new concerning symptoms. Discharge Data Discharge Date/Time-TO BE ENTERED AT DEPARTURE: 07/22/21 22:48 Discharge Physician: Tiara Llanes Medical Decision Making 76-year-old female with a history of lumbar compression fracture treated with surgery presents with midline lower back pain and coccyx pain after fall onto her bottom this afternoon. She states she does not think she passed out but when she bent over to pick something up and stood up she fell backward onto her bottom. She also admits to chronic headaches for the past 50+ years but denies any headache at present. Vitals within normal limits. Patient appears comfortable at rest but appears to be in pain with movement. She has reproducible tenderness with palpation overlying lumbar spine down to coccyx. There is no evidence of trauma. Neurovascularly intact. No other extremity injury noted. Chest and abdomen nontender. No focal deficits. Suspect patient may have had a vasovagal near syncope or off-balance on bending over. History and presentation does not appear consistent with stroke or ACS. Considering patient's age and history, will obtain screening labs, CT head for chronic headaches, and will assess the lumbar spine and coccyx with CT imaging. We will give a dose of oxycodone and Motrin in addition IV fluids and reassess. Labs and imaging reviewed. White blood cell count 11.6. Potassium 3.0, magnesium 1.6, will replete. Troponin negative. CT Lumbar spine notes: IMPRESSION: Chronic compression deformity again evident at L3 with evidence of interval kyphoplasty/vertebroplasty and no acute lumbar fractures detected. CT head notes: IMPRESSION: Cerebral atrophy and suspected microvascular ischemic changes of mild degree with no evidence of acute infarct, recent hemorrhage or hydrocephalus. No acute intracranial process is detected. Patient was able to ambulate and had pain but feels comfortable going home. Patient states she is concerned about her level of pain. Discussed that there were no fractures but can treat with ibuprofen and muscle relaxers. Will give additional pain medication in addition to muscle relaxers and steroids and reambulate. Patient feels much better after additional medicine. She was able to ambulate and feels comfortable going home. We will send with a prescription for steroids and muscle relaxers in addition to a 4 tab bottle of oxycodone to go for breakthrough pain. Patient advised to call her PCP tomorrow for follow-up. Usual and customary return precautions given prior to discharge. Medical Records Medical records reviewed: Yes I reviewed the patient's medical records. Imaging Data Radiologic Study: Radiologist's impression: CT Lumbar Spine Without Contrast Exam date and time: 07/22/2021 6:34 PM Age: 76 years old Clinical indication: Injury or trauma; Blunt trauma (contusions or hematomas); Injury date: 07/22/21; Injury details: S/P fall onto bottom, R/O FX; Prior surgery; Surgery date: 6+ months; Surgery type: H/o lumbar fusion TECHNIQUE: Imaging protocol: Computed tomography images of the lumbar spine without contrast. Radiation optimization: All CT scans at this facility use at least one of these dose optimization techniques: automated exposure control; mA and/or kV adjustment per patient size (includes targeted exams where dose is matched to clinical indication); or iterative reconstruction. COMPARISON: MR lumbar spine wo 04/23/2018 9:11 AM FINDINGS: Vertebrae:? Chronic moderate compression deformity again seen involving the body of L3 with evidence of interval kyphoplasty/vertebroplasty at this level.? There is gross preservation of vertebral body height throughout the remainder of the lumbar spine with no acute fractures or dislocations identified.? Posterior elements are grossly intact throughout the lumbar spine. Discs/Spinal canal/Neural foramina:? Retropulsion of the posterior margin of the superior endplate of L3 associated with the chronic compression deformity at this level indents the ventral thecal sac without significant central canal stenosis.? No significant central canal stenosis detected at remaining lumbar levels.? Bilateral foraminal narrowings identified at L4-L5 and L5-S1. Soft tissues: Unremarkable. IMPRESSION: Chronic compression deformity again evident at L3 with evidence of interval kyphoplasty/vertebroplasty and no acute lumbar fractures detected. CT Head Without Contrast Exam date and time: 07/22/2021 6:05 PM Age: 76 years old Clinical indication: Pain; Headache not specified; Patient HX: Chronic headaches, dizziness today, R/O acute dz TECHNIQUE: Imaging protocol: Computed tomography of the head without contrast. Radiation optimization: All CT scans at this facility use at least one of these dose optimization techniques: automated exposure control; mA and/or kV adjustment per patient size (includes targeted exams where dose is matched to clinical indication); or iterative reconstruction. COMPARISON: No relevant prior studies available. FINDINGS: Brain: Prominence of cerebral sulci reflects diffuse cerebral atrophy. A few indistinct hypodensities seen throughout the deep and periventricular white matter of both cerebral hemispheres may reflect microvascular ischemic changes of relatively mild degree. Brainstem and cerebellum are unremarkable and there is no evidence of acute infarct or intracranial hemorrhage. Cerebral ventricles: Dilatation of the 3rd and lateral ventricles is commensurate with the degree of cerebral atrophy. Paranasal sinuses: Grossly clear throughout. Mastoid air cells: Grossly clear bilaterally. Bones/joints: Bony calvarium and skull base are intact and no acute fractures are detected. Soft tissues: Unremarkable. IMPRESSION: Cerebral atrophy and suspected microvascular ischemic changes of mild degree with no evidence of acute infarct, recent hemorrhage or hydrocephalus. No acute intracranial process is detected. Lab Data Lab results reviewed: Yes I reviewed the patient's lab results. Labs: Laboratory Tests Range/Units 07/22/21 07/22/21 19:27 19:27 WBC (4.4-10.8) 10^3/uL 11.65 H RBC (3.93-5.22) 10^6/uL 3.76 L Hgb (11.2-15.7) g/dL 12.7 Hct (36.0-46.0) % 37.2 MCV (80-95) fL 98.9 H MCH (27.0-33.0) pg 33.8 H MCHC (32.0-36.0) % 34.1 RDW (11.7-14.6) % 14.7 H Plt Count (130-400) 10^3/uL 304 MPV (8.0-11.0) fL 9.3 Immature Gran % 0.6 Neutrophils % 81.7 Lymphocytes % 11.6 Monocytes % 5.6 Eosinophils % 0.3 Basophils % 0.2 Nucleated RBC % % 0 Absolute Neutrophils (1.2-6.7) 10^3/uL 9.52 H Absolute Lymphocytes (1.2-3.4) 10^3/uL 1.35 Absolute Monocytes (0.1-0.8) 10^3/uL 0.65 Absolute Eosinophils (0.0-0.7) 10^3/uL 0.03 Absolute Basophils (0.0-0.2) 10^3/uL 0.02 Sodium (136-145) mmol/L 140 Potassium (3.5-5.1) mmol/L 3.0 L Chloride (98-107) mmol/L 100 Carbon Dioxide (21.0-32.0) mmol/L 26.9 Anion Gap (3-11) mmol/L 13.1 H BUN (7-18) mg/dL 18 Creatinine (0.55-1.02) mg/dL 0.9 Estimated GFR/1.73 m2 (mL/min/1.73m2) >= 60.00 Glucose (74-106) mg/dL 93 Calcium (8.5-10.1) mg/dL 8.9 Magnesium (1.8-2.4) mg/dL 1.6 L Total Bilirubin (0.2-1.0) mg/dL 0.4 AST (15-37) U/L 35 ALT (14-59) U/L 40 Alkaline Phosphatase (46-116) U/L 86 Troponin I (<or=60) ng/L < 50 Total Protein (6.4-8.2) g/dL 6.9 Albumin (3.4-5.0) g/dL 3.6 ECG Data Attestation: I personally reviewed and interpreted this ECG (s) as follows: Interpretation: Rate of 72, sinus, no acute ST elevation or depression. MI 188. QRS 80. QTc 451. HPI General Mode of arrival: EMS . Date/Time Provider Initiated Documentation: 07/22/21 17:20 . Limitations to Documentation: no limitations . Information obtained by: patient . HPI Narrative: Patient is a 76-year-old female with a history of lumbar fusion presents with lower back pain after a fall at home this afternoon. Patient states she dropped something on the floor and when she went to pick it up and stood up backward he fell back onto her bottom. She states she does not think she passed out but she is unsure. She states she was able to get up after she fell and get herself onto a chair. She denies any dizziness, chest pain, shortness of breath or headache prior to the fall. She states she hit her bottom on a rug covering a hard floor. Dates she is having pain extending from her midline lower back to her tailbone. She has a previous history of L5 fracture which was treated with surgery. She states she took 1000 mg of Tylenol after her fall today but denies any relief with this. She states her pain is currently 6/10 but would be worse upon standing. She states she hit her head on a cardboard box when she fell but states it was minimal and denies any LOC after head injury, vomiting or headache or neck pain at present. She also states that she has had chronic headaches for the past 50 years that occur once monthly and are located on both sides of her head and radiates to the top of her head. She states the pain feels dull but denies any at present. She states she is concerned she may have an aneurysm. She states she has not spoke to her primary care doctor or seen a neurologist for this. Related Data Home Medications Medication Instructions Recorded Confirmed aspirin 81 mg tablet,delayed 81 mg PO DAILY tab-cap 08/03/12 07/23/21 release (Aspir-) omega-3 fatty acids-fish oil 360 1 ea PO DAILY 08/03/12 07/23/21 mg-1,200 mg capsule vitamin A 2,400 mcg capsule 8,000 units PO DAILY tab-cap 05/15/17 07/23/21 ibuprofen 600 mg tablet 600 mg PO TID PRN #30 tab 06/02/18 07/23/21 acetaminophen 500 mg tablet 500 mg PO Q4H PRN 05/19/19 07/23/21 (Tylenol Extra Strength) naproxen sodium 220 mg capsule 220 mg PO Q12H PRN 05/19/19 07/23/21 (Aleve) fluoxetine 20 mg capsule 20 mg PO DAILY #90 tab-cap 11/19/20 07/23/21 atorvastatin 80 mg tablet 80 mg PO DAILY #90 tab-cap 01/02/21 07/23/21 omeprazole 20 mg capsule,delayed 20 mg PO DAILY #90 tab-cap 01/02/21 07/23/21 release trazodone 50 mg tablet 50 mg PO HS #90 tab-cap 01/02/21 07/23/21 calcium carbonate 600 mg-vitamin 600 cap PO DAILY 02/21/21 07/23/21 D3 12.5 mcg (500 unit) capsule hydrochlorothiazide 12.5 mg capsule 12.5 mg PO DAILY #90 tab-cap 02/21/21 07/23/21 levothyroxine 88 mcg tablet 88 mcg PO DAILY #90 tab-cap 02/21/21 07/23/21 losartan 25 mg tablet 25 mg PO DAILY #90 tab-cap 02/21/21 07/23/21 mometasone 50 mcg/actuation nasal 1 - 2 spray NS DAILY PRN #3 unit 02/21/21 07/23/21 spray (Nasonex) zolpidem 5 mg tablet 5 mg PO QHS PRN 06/06/21 07/23/21 prednisone 20 mg tablet See Rx Instructions .ROUTE 07/22/21 07/23/21 .COMPLEX #12 tab methocarbamol 500 mg tablet 500 mg PO Q6H PRN #30 tab 07/23/21 07/23/21 Previous Rx's Medication Instructions Recorded ibuprofen 600 mg tablet 600 mg PO TID PRN #30 tab 06/02/18 fluoxetine 20 mg capsule 20 mg PO DAILY #90 tab-cap 11/19/20 atorvastatin 80 mg tablet 80 mg PO DAILY #90 tab-cap 01/02/21 omeprazole 20 mg capsule,delayed 20 mg PO DAILY #90 tab-cap 01/02/21 release trazodone 50 mg tablet 50 mg PO HS #90 tab-cap 01/02/21 hydrochlorothiazide 12.5 mg capsule 12.5 mg PO DAILY #90 tab-cap 02/21/21 levothyroxine 88 mcg tablet 88 mcg PO DAILY #90 tab-cap 02/21/21 losartan 25 mg tablet 25 mg PO DAILY #90 tab-cap 02/21/21 mometasone 50 mcg/actuation nasal 1 - 2 spray NS DAILY PRN #3 unit 02/21/21 spray (Nasonex) prednisone 20 mg tablet See Rx Instructions .ROUTE 07/22/21 .COMPLEX #12 tab methocarbamol 500 mg tablet 500 mg PO Q6H PRN #30 tab 07/23/21 Allergies Allergy/AdvReac Type Severity Reaction Status Date / Time Sulfa (Sulfonamide Allergy Severe TONGUE Verified 07/22/21 17:21 Antibiotics) SWELLING lisinopril AdvReac Intermediate COUGH NOTE Verified 07/22/21 17:21 DATED 04/06/19 General Stated Complaint: Orthopedic KATY: 3 Review of Systems All systems reviewed & are unremarkable except as noted in HPI and below Constitutional Constitutional: Reports as per HPI, Denies chills, Denies excessive sweating, Denies fatigue and Denies fever(s) Eyes Eyes: Denies blurry vision ENT Ears, Nose, Mouth, and Throat: Denies dizziness, Denies sore throat and Denies throat swelling Cardiovascular Cardiovascular: Denies chest pain and Denies dyspnea Respiratory Respiratory: Denies cough and Denies dyspnea Gastrointestinal Gastrointestinal: Denies abdominal pain, Denies diarrhea and Denies vomiting Genitourinary Genitourinary: Denies hematuria and Denies dysuria Musculoskeletal Musculoskeletal: Reports back pain and Denies numbness Integumentary/Breasts Skin/Breast: Denies lesions and Denies rash Neurologic Neurologic: Denies behavioral changes, Denies confusion, Denies dizziness, Denies localized weakness and Denies numbness Psychiatric Psychiatric: Denies behavioral changes, Denies confusion and Denies depression Endocrine Endocrine: Denies excessive sweating and Denies fatigue Hematologic/Lymphatic Hematologic/Lymphatic: Denies easy bruising and Denies lymphadenopathy Allergic/Immunologic Allergic/Immunologic: Denies throat swelling PFSH All Active Problems Back pain with history of spinal surgery (Acute) History of back surgery (Acute) Fall at home (Acute) Contusion of lower back (Acute) DEEP (obstructive sleep apnea) (Chronic ~06/2021) Sleep study 06/23/21 severe Restless legs (Acute) 06/06/21 sleep note Snoring (Acute) 06/06/21 Sleep note Cecal polyp (Acute) Colon polyps (Acute) Urinary incontinence, urge (Chronic) Chronic kidney disease (CKD), stage III (moderate) (Chronic) 10/2014: renal US neg, cysts; 05/2018 renal US: B/L renal cysts Unspecified essential hypertension (Chronic 08/04/11) FRS 6% Peripheral vascular disease (Chronic 08/04/11) Osteoporosis (Chronic 08/13/12) T -2.8 DEXA 2003; [place] [facility] [place] [facility] [place] Hypothyroidism, unspecified (Chronic 08/13/12) Hyperlipidemia (Chronic 08/19/13) On high intensity statin therapy Generalized osteoarthrosis, unspecified site (Chronic 08/04/11) Depressive disorder (Chronic 08/04/11) Allergic rhinitis, unspecified (Chronic 08/13/12) Medical History Compression fracture of lumbar vertebra (~2017) L3; s/p vertebral augmentation ([facility] [place] [place] Hot flashes (02/09/15) H/o gabapentin Rx; titrated off 2019 & no recurrence Senile cataract, unspecified (08/04/11) Tubular adenoma of colon (03/06/17) Surgical History Abdominal hysterectomy Breast, Mastectomy (~1999) left breast, pt. reports tummy tuck at same time to make breast History of bilateral cataract extraction Hx of repair of rotator cuff Right Tonsillectomy (~1967) Family History Brother Diabetes Heart disease S/p bypass surgery Brother No problems noted. Social History Smoking/Tobacco Use Status: Former Tobacco Use Quit Date: 06/01/79 Smoking risk assessment performed?: Yes Alcohol Intake: current Alcohol Intake frequency: 0-2 drinks per day Alcohol type: hard liquor Drug use: Never Substance use type: does not use Details: alcohol: t-1, one drink Caregiver/Support person: No Communication Needs: None Pets and animals: Yes Pets and animals: cat(s) Current gender identity: female What type of physical activity do you participate in: other Details: stretches Frequency: daily Seatbelt use: always Water heater temp set <120 deg: Yes Working smoke detector in home: Yes Fire extinguisher in home: Yes Carbon monox detector in home: Yes Do you feel safe at home: Yes Exam Const General: cooperative and healthy appearing Orientation: alert, awake and oriented x3 HENMT Head: normal to inspection Ears: hearing grossly normal bilaterally, external ears normal and TM's normal bilaterally General nose exam: external nose normal Face and sinus: normal facial exam Mouth: oral mucosae normal Teeth and gingiva: dentition normal Throat: posterior oropharynx normal Eyes General: appearance normal, both eyes and all related structures Eyelids: eyelids normal Pupils: PERRL EOM: EOM intact bilaterally Neck Neck: normal visual inspection Lymphatic: no lymphadenopathy noted Chest Chest: normal inspection of the chest, normal palpation of entire chest wall and no tenderness Resp Effort & Inspection: normal respiratory effort and able to speak in complete sentences Auscultation: clear to auscultation bilaterally Cardio Rate: regular rate Rhythm: regular rhythm GI Inspection: normal to inspection Palpation: soft, not firm, no guarding, no hepatosplenomegaly, no masses and nontender Auscultation: normal bowel sounds Back/Spine/Pelvis Thoracic/Lumbar Spine: thoracic and lumbar spine normal to inspection and lumbar spinal tenderness Sacrum: tenderness Coccyx: tenderness Skin General skin exam: no rashes or lesions noted Neuro General: patient alert, patient awake, moves all extremities and no meningeal signs Cranial Nerves: CN's II-XI intact bilaterally Cognition: normal cognition Speech: speech normal Gait: normal gait Motor: muscle tone normal throughout Sensory Exam: no sensory deficits noted DTR's: Rt Patellar: 0, Lt Patellar: 0, Rt Ankle: 0 and Lt Ankle: 0 Plantar Reflexes: Equivocal: bilateral (negative babinski b/l ) Extrem General: normal to inspection, full ROM and capillary refill normal Other: Normal range of motion bilateral upper and lower extremities without pain or evidence of trauma. Psych Appearance: grossly normal Mental Status: mental status grossly normal Speech and Movement: speech and movement normal Affect: normal affect Thought Process: normal Course Vital Signs Vital signs: Vital Signs Temperature 97.0 F L 07/22/21 17:13 Pulse 72 07/22/21 17:13 Blood Pressure 105/50 L 07/22/21 17:13 Pulse Oximetry 94 07/22/21 17:13 Temperature 97.0 F L 07/22/21 17:13 Temperature Source Temporal Artery Scan 07/22/21 17:13 Pulse 72 07/22/21 17:13 Respiratory Effort Non-Labored 07/22/21 17:17 Blood Pressure 105/50 L 07/22/21 17:13 Blood Pressure Position Supine 07/22/21 17:13 Pulse Oximetry 94 07/22/21 17:13 Oxygen Delivery Method Room Air 07/22/21 17:13 Oxygen Flow Rate 0 07/22/21 17:13 Pain Level 7 07/22/21 17:17 PAWSS Have you Been Recently Intoxicated or Drunk Within the Last 30 days?: No Have you Ever Experienced Previous Episodes of Alcohol Withdrawal?: No Have you ever Experienced Withdrawal Seizures?: No Have you ever Experienced Delirium Tremens(DT)s?: No Have you ever undergone Alcohol Rehabilitation Treatment (i.e, inpt ot outpatient treatment programs)?: No Have you ever Experienced Blackouts?: No Have you ever Combined Alcohol with other Downers within the last 90 days?: No Have you ever Combined Alcohol with any other Substance of Abuse during the last 90 days?: No Positive Blood Alcohol level on Presentation? [PCS.BAL]: No Evidence of Increased Autonomic Activity (i.e. HR>120, tremor, sweating, agitation, nausea)?: No Result: 0
--- NOTE | 2021-07-22 18:00 | DI.CT_ITS ---
Exam(s) CT HEAD WO EXAM: CT HEAD WO CLINICAL HISTORY: chronic headaches, dizziness today, r/o acute dz. TECHNIQUE: Imaging Protocol: Axial computed tomography images with coronal and sagittal reformatted images were created and reviewed COMPARISON: No exams were available for comparison FINDINGS: There is moderate generalized cerebral atrophy. No evidence of acute intracranial hemorrhage, mass effect, or midline shift. The orbital structures are unremarkable. The temporal bone structures appear intact. Calvarium: Normal. Visualized Paranasal sinuses/Mastoids: Clear. IMPRESSION: No evidence of acute intracranial process. RADIATION DOSE DELIVERED: 705.18mGy.cm Total DLP 705.18mGy.cm Total DLP !Error CTDIvol DATA REPOSITORY: All CT scans at this facility are submitted to the National Radiology Data Registry (NRDR) Dose Index Registry (DIR) with the [employer] ([employer]). RADIATION OPTIMIZATION: All CT scans at this facility use at least one of these dose optimization te chniques: automated exposure control; mA and/or kV adjustment per patient size (includes targeted exa ms where dose is matched to clinical indication); or iterative reconstruction.
--- NOTE | 2021-07-22 18:00 | RT.EKG_ITS ---
APPROVED REPORT Exam: Resting ECG Reason for Exam: dizziness Patient Location: E HR:72 bpm ECG Measurements Heart Rate 72 AXIS WI 188 P 81 QRSd 80 QRS 31 QT 411 T 53 QTc 451 Conclusion Sinus rhythm...normal P axis, V-rate 60- 99. Sinus. Normal axis. No STEMI. I have reviewed and interpreted ECG and agree with software generated interpretation.
--- NOTE | 2021-07-22 18:02 | DI.CT_ITS ---
Exam(s) CT LUMBAR SPINE WO EXAM: CT LUMBAR SPINE WO CLINICAL HISTORY: s/p fall onto bottom, r/o fx TECHNIQUE: COMPARISON: MR MR lumbar spine wo from 04/23/2018 FINDINGS: CT examination lumbosacral spine was performed without contrast administration. Visualized pulmonary parenchyma is unremarkable. Visualized hepatic parenchyma is unremarkable. Right renal cyst noted, incompletely visualized. No hydronephrosis. Left renal cyst also noted, no left hydronephrosis. A bdominal aorta is of diameter. There is a compression deformity of L3 which is chronic without evidence of prior vertebroplasty. No gross interval change in alignment comparison with prior MRI of April 2018. No significant narro wing of the spinal canal although there is a slight kyphotic deformity at this site with prominence o f superior endplate of L3, chronic. No gross disc herniation identified by CT criteria. No evidence of acute fracture. IMPRESSION: No evidence of acute process. RADIATION DOSE DELIVERED: 764.82mGy.cm Total DLP !Error CTDIvol RADIATION OPTIMIZATION: All CT scans at this facility use at least one of these dose optimization te chniques: automated exposure control; mA and/or kV adjustment per patient size (includes targeted exa ms where dose is matched to clinical indication); or iterative reconstruction.
[2021-07-22] MEDS: Ibuprofen 600 MG TAB PO (18:27)
[2021-07-22] MEDS: oxyCODONE 5 MG TAB PO ×2 (18:27→20:38)
--- NOTE | 2021-07-22 19:00 | DI.VRAD_ITS ---
PROCEDURE INFORMATION: Exam: CT Head Without Contrast Exam date and time: 07/22/2021 6:05 PM Age: 76 years old Clinical indication: Pain; Headache not specified; Patient HX: Chronic headaches, dizziness today, R/O acute dz TECHNIQUE: Imaging protocol: Computed tomography of the head without contrast. Radiation optimization: All CT scans at this facility use at least one of these dose optimization techniques: automated exposure control; mA and/or kV adjustment per patient size (includes targeted exams where dose is matched to clinical indication); or iterative reconstruction. COMPARISON: No relevant prior studies available. FINDINGS: Brain: Prominence of cerebral sulci reflects diffuse cerebral atrophy. A few indistinct hypodensities seen throughout the deep and periventricular white matter of both cerebral hemispheres may reflect microvascular ischemic changes of relatively mild degree. Brainstem and cerebellum are unremarkable and there is no evidence of acute infarct or intracranial hemorrhage. Cerebral ventricles: Dilatation of the 3rd and lateral ventricles is commensurate with the degree of cerebral atrophy. Paranasal sinuses: Grossly clear throughout. Mastoid air cells: Grossly clear bilaterally. Bones/joints: Bony calvarium and skull base are intact and no acute fractures are detected. Soft tissues: Unremarkable. IMPRESSION: Cerebral atrophy and suspected microvascular ischemic changes of mild degree with no evidence of acute infarct, recent hemorrhage or hydrocephalus. No acute intracranial process is detected. Dictated and Authenticated by: Gamal Verdin MD. Ordering:SVETA Menjivar MD
--- NOTE | 2021-07-22 19:09 | DI.VRAD_ITS ---
PROCEDURE INFORMATION: Exam: CT Lumbar Spine Without Contrast Exam date and time: 07/22/2021 6:34 PM Age: 76 years old Clinical indication: Injury or trauma; Blunt trauma (contusions or hematomas); Injury date: 07/22/21; Injury details: S/P fall onto bottom, R/O FX; Prior surgery; Surgery date: 6+ months; Surgery type: H/o lumbar fusion TECHNIQUE: Imaging protocol: Computed tomography images of the lumbar spine without contrast. Radiation optimization: All CT scans at this facility use at least one of these dose optimization techniques: automated exposure control; mA and/or kV adjustment per patient size (includes targeted exams where dose is matched to clinical indication); or iterative reconstruction. COMPARISON: MR lumbar spine wo 04/23/2018 9:11 AM FINDINGS: Vertebrae: Chronic moderate compression deformity again seen involving the body of L3 with evidence of interval kyphoplasty/vertebroplasty at this level. There is gross preservation of vertebral body height throughout the remainder of the lumbar spine with no acute fractures or dislocations identified. Posterior elements are grossly intact throughout the lumbar spine. Discs/Spinal canal/Neural foramina: Retropulsion of the posterior margin of the superior endplate of L3 associated with the chronic compression deformity at this level indents the ventral thecal sac without significant central canal stenosis. No significant central canal stenosis detected at remaining lumbar levels. Bilateral foraminal narrowings identified at L4-L5 and L5-S1. Soft tissues: Unremarkable. IMPRESSION: Chronic compression deformity again evident at L3 with evidence of interval kyphoplasty/vertebroplasty and no acute lumbar fractures detected. Dictated and Authenticated by: Gamal Verdin MD. Ordering:SVETA Menjivar MD
[2021-07-22 19:44] LABS: Abs Immature Grans 0.07 10^3/uL (0.0-0.06); Absolute Basophil Count 0.02 10^3/uL (0.0-0.2); Absolute Eosinophil Count 0.03 10^3/uL (0.0-0.7); Absolute Lymphocyte Count 1.35 10^3/uL (1.2-3.4); Absolute Monocyte Count 0.65 10^3/uL (0.1-0.8); Absolute Neutrophil Count 9.52 10^3/uL (1.2-6.7); Basophils % 0.2; Eosinophils % 0.3; HCT 37.2 % (36.0-46.0); HGB 12.7 g/dL (11.2-15.7); Immature Grans % 0.6; Lymphocytes % 11.6; MCH 33.8 pg (27.0-33.0); MCHC 34.1 % (32.0-36.0); MCV 98.9 fL (80-95); MPV 9.3 fL (8.0-11.0); Monocytes % 5.6; Neutrophils % 81.7; Nucleated RBC 0 %; Platelet Count 304 10^3/uL (130-400); RBC 3.76 10^6/uL (3.93-5.22); RDW 14.7 % (11.7-14.6); WBC 11.65 10^3/uL (4.4-10.8)
[2021-07-22 19:50] VITALS: BP 147/76; PULSE 71; RESP 16; O2SAT 98
[2021-07-22 20:03] LABS: ALT 40 U/L (14-59); AST 35 U/L (15-37); Albumin 3.6 g/dL (3.4-5.0); Alkaline Phosphatase 86 U/L (46-116); Anion Gap 13.1 mmol/L (3-11); BUN 18 mg/dL (7-18); Bilirubin, Total 0.4 mg/dL (0.2-1.0); CO2 26.9 mmol/L (21.0-32.0); CREATININE 0.9 mg/dL (0.55-1.02); Calcium 8.9 mg/dL (8.5-10.1); Chloride 100 mmol/L (98-107); Glucose 93 mg/dL (74-106); Magnesium 1.6 mg/dL (1.8-2.4); Sodium 140 mmol/L (136-145); Total Protein 6.9 g/dL (6.4-8.2); Troponin I < 50 ng/L (<or=60)
[2021-07-22] MEDS: Normal Saline 500 ML IV (20:10)
[2021-07-22] MEDS: Potassium Chloride 20 MEQ TABCR 40 MEQ PO (20:29)
[2021-07-22] MEDS: Magnesium Oxide 400 MG TAB PO (20:29)
[2021-07-22] MEDS: diazePAM 5 MG TAB PO (20:36)
[2021-07-22] MEDS: predniSONE 20 MG TAB 60 MG PO (20:37)
== END 2021-07-22 22:48 | disposition home or self-care (01) ==
PROVIDERS: Emergency Provider Physician Assistant; PCP Nurse Practitioner Family
DX: S30.0XXA Contusion of lower back and pelvis, initial encounter (principal); W18.39XA Other fall on same level, initial encounter; R42 Dizziness and giddiness; R51.9 Headache, unspecified
CPT/HCPCS: 36415; 80053; 93005; 96360; 99284; 70450; 72131; 83735; 84484; 85025; 93010; J7512

== ENCOUNTER 2021-07-26 13:13 | Observation (INO) | payer MEDICARE, BC, OTHER, SELFPAY ==
[2021-07-26] VITALS (10 sets, daily range): BP systolic 145–183; BP diastolic 74–88; PULSE 63–73; RESP 14–16; TEMP 36.3–36.4; O2SAT 93–100
--- NOTE | 2021-07-26 14:00 | DI.CT_ITS ---
Exam(s) CT THORACIC SPINE WO EXAM: CT THORACIC SPINE WO CLINICAL HISTORY: PAIN POST FALL. TECHNIQUE: Imaging Protocol: Axial computed tomography images with coronal and sagittal reformatted images were created and reviewed. CONTRAST MATERIAL: Intravenous: Omnipaque 350 Contrast volume:structured data in ml Contrast route:I V - Oral: yes / no COMPARISON: CT CT ABDOMEN PELVIS W from 07/26/2021 FINDINGS: OSSEOUS: There is no evidence of obvious acute compression fracture or listhesis. Slight loss of hei ght of L1 is noted but this is probably not acute. Multilevel Schmorl's node invagination is within endplates are noted. No compromise of the spinal canal. No evidence of paraspinal hematoma. IMPRESSION: No obvious acute fracture thoracic spinal column please note that lumbar spine vertebral body seen on today's abdominal CT scan reveal loss of height of L3 with cement, consistent with non acute event a t that level. Called by myself to ER provider RADIATION DOSE DELIVERED: 1285.64 mGy.cm Total DLP DATA REPOSITORY: All CT scans at this facility are submitted to the National Radiology Data Registry (NRDR) Dose Index Registry (DIR) with the [employer] ([employer]). RADIATION OPTIMIZATION: All CT scans at this facility use at least one of these dose optimization te chniques: automated exposure control; mA and/or kV adjustment per patient size (includes targeted exa ms where dose is matched to clinical indication); or iterative reconstruction.
--- NOTE | 2021-07-26 14:00 | DI.CT_ITS ---
Exam(s) CT ABDOMEN PELVIS W EXAM: CT ABDOMEN PELVIS W CLINICAL HISTORY: PAIN LEFT FLANK , THORACIC SPINE POST FALL. TECHNIQUE: Imaging Protocol: Axial computed tomography images with coronal and sagittal reformatted images were created and reviewed CONTRAST MATERIAL: Intravenous: Omnipaque 100cc Oral: None COMPARISON: CT CT LUMBAR SPINE WO from 07/22/2021 FINDINGS: VISUALIZED LUNG BASES: No nodules nor pleural effusions evident. ABDOMEN: There is no ascites. No evidence of mesenteric nor bowel wall hematoma. LIVER: There are no focal hepatic lesions evident. No evidence of a patent laceration or subcapsular collection. GALLBLADDER/BILIARY: No obvious gallbladder pathology. CBD is not dilated. PANCREAS: No evidence of pancreatic mass nor dilatation of the pancreatic duct. SPLEEN: Spleen size is normal. No splenic laceration or perisplenic fluid. Splenic and portal veins are patent. ADRENALS: There are no significant adrenal masses. KIDNEYS:There is cysts in both kidneys, 1 in each kidney. The cyst in the anterior cortex of the lef t kidney measures 4.5 x 4.2 cm. This cyst in the right kidney measures 2.7 x 2.4 cm. No solid renal masses nor calculi nor hydronephrosis. No renal lacerations. No subcapsular hematomas.. ABDOMINAL AORTA: Abdominal aorta is not enlarged. LYMPH NODES:There is no retroperitoneal nor paraaortic adenopathy. ABDOMINAL WALL: No evidence of significant anterior abdominal wall nor inguinal hernia. GI: There is no evidence of bowel obstruction, free air, nor abscess. PELVIS: GI: Appendix is surgically absent.No evidence of sigmoid diverticulitis. LYMPH NODES: There is no intrapelvic nor inguinal adenopathy. REPRODUCTIVE: Uterus is surgically absent. No abnormal adnexal masses. No free fluid. URINARY BLADDER: No calculi nor obvious masses evident OSSEOUS: Height loss of L3 vertebral body superior endplate with cement at this level. No acute frac ture lines at this level nor elsewhere in the lumbar vertebral bodies. No facet malalignment. IMPRESSION: 1. No significant trauma sequelae in the abdomen and pelvis. 2. Decreased height of L3 vertebral body but there is cement at this level and therefore not acute. 3. Benign cyst in each kidney. No other focal renal findings 4. RADIATION DOSE DELIVERED: Total DLP DATA REPOSITORY: All CT scans at this facility are submitted to the National Radiology Data Registry (NRDR) Dose Index Registry (DIR) with the [employer] (ACR). RADIATION OPTIMIZATION: All CT scans at this facility use at least one of these dose optimization te chniques: automated exposure control; mA and/or kV adjustment per patient size (includes targeted exa ms where dose is matched to clinical indication); or iterative reconstruction.
[2021-07-26 15:17] LABS: Abs Immature Grans 0.07 10^3/uL (0.0-0.06); Absolute Basophil Count 0.01 10^3/uL (0.0-0.2); Absolute Eosinophil Count 0.01 10^3/uL (0.0-0.7); Absolute Lymphocyte Count 1.51 10^3/uL (1.2-3.4); Basophils % 0.1; Eosinophils % 0.1; HGB 14.5 g/dL (11.2-15.7); Immature Grans % 0.5; MCH 33.3 pg (27.0-33.0); MCHC 33.7 % (32.0-36.0); MCV 98.6 fL (80-95); MPV 8.9 fL (8.0-11.0); Neutrophils % 80.3; Nucleated RBC 0 %; Platelet Count 326 10^3/uL (130-400); RBC 4.36 10^6/uL (3.93-5.22); RDW 14.4 % (11.7-14.6); RDW-SD 52.9 fL; WBC 13.76 10^3/uL (4.4-10.8)
[2021-07-26] MEDS: fentaNYL 100 MCG/2 ML VIAL 50 MCG IVP (15:17)
[2021-07-26 15:18] LABS: Absolute Neutrophil Count 11.05 10^3/uL (1.2-6.7)
[2021-07-26] MEDS: Acetaminophen 325 MG TAB PO (15:18)
[2021-07-26] MEDS: oxyCODONE 5 mg/Acetaminophen 325 mg TAB 1 TAB PO (15:18)
[2021-07-26 15:36] LABS: ALT 21 U/L (14-59); AST 19 U/L (15-37); Alkaline Phosphatase 105 U/L (46-116); Anion Gap 10.7 mmol/L (3-11); BUN 16 mg/dL (7-18); Bilirubin, Total 1.1 mg/dL (0.2-1.0); CO2 30.3 mmol/L (21.0-32.0); CREATININE 0.9 mg/dL (0.55-1.02); Calcium 9.1 mg/dL (8.5-10.1); Chloride 96 mmol/L (98-107); Glucose 95 mg/dL (74-106); Lipase 146 U/L (73-393); Sodium 137 mmol/L (136-145); Total Protein 8.1 g/dL (6.4-8.2)
[2021-07-26 15:41] LABS: Bilirubin Negative (Negative); Blood Trace-intact (Negative); Clarity Clear (Clear); Glucose Negative (Negative); Ketones Negative (Negative); Leukocyte Esterase Negative (Negative); Nitrite Negative (Negative); Specific Gravity >= 1.030 (1.005-1.025); Urobilinogen 0.2 EU/dL (Up TO 0.2); pH 5.5 (5-8)
--- NOTE | 2021-07-26 15:43 | W.ED.GENAD ---
Discharge Plan Disposition Patient Disposition: [facility] INPATIENT Condition: Fair Discharge Details Clinical Impression: Acute low back pain due to trauma Admit Date/Time: 07/26/21 18:08 Admit Provider: David Srivastava Attending Provider: David Srivastava Primary Care Provider: Mei Herrera ED Provider: Nicanor Kennedy Discharge Data Discharge Date/Time-TO BE ENTERED AT DEPARTURE: 07/26/21 18:59 Medical Decision Making <GLO Phelan - Last Filed: 07/27/21 13:43> Given patient's return visit I had left flank pain and thoracic pain, I did order CT abdomen and pelvis with reconstruction of patient's thoracic spine She is alert and oriented and otherwise has a nonfocal neurological exam She states she is unable to get around her home she will possibly need admission, I have given her pain medication in the emergency department and we will attempt ambulatory trial if her BP is stable Unfortunately she was a difficult IV placement and lab draw and therefore there was a delay in her labs and CT signed out to Bunny Kennedy NP pending ct results, labs, ambulatory trial and possible admission Medical Records Medical records reviewed: Yes I reviewed the patient's medical records. Lab Data Lab results reviewed: Yes I reviewed the patient's lab results. <Nicanor Kennedy NP - Last Filed: 07/26/21 23:37> Given patient's return visit I had left flank pain and thoracic pain, I did order CT abdomen and pelvis with reconstruction of patient's thoracic spine She is alert and oriented and otherwise has a nonfocal neurological exam She states she is unable to get around her home she will possibly need admission, I have given her pain medication in the emergency department and we will attempt ambulatory trial if her BP is stable Unfortunately she was a difficult IV placement and lab draw and therefore there was a delay in her labs and CT signed out to Bunny Kennedy NP pending ct results, labs, ambulatory trial and possible admission 1655-assumed care from Lorraine CODY pending CT imaging. Spoke with radiologist whom states no acute signs of fracture but there is some vertebral height loss that would be better evaluated by MRI. He states no acute findings for abdomen pelvis. Discussed findings with patient whom states previous compression fractures have been found in the same way in which CT imaging was negative and MRI imaging showed fracture. Patient does state that she has been unable to fully function at home due to severe pain and cannot get out of bed. Patient lives alone and has no one to assist with caring for her. Given this along with the fact that patient attempted outpatient management initially I do feel that hospital admission with further advanced imaging and physical therapy consult would be beneficial. Patient is agreeable to this plan of care. Contacted hospitalist for admission who is agreeable to continue to manage patient's discomfort and further evaluate with imaging. HPI <GLO Phelan - Last Filed: 07/27/21 13:43> General Date/Time Provider Initiated Documentation: 07/26/21 13:40. HPI Narrative: This 76-year-old female presents after fall on Thursday where she was evaluated in the emergency room. She had a lumbar spine x-ray at the time that did not show acute abnormality. She was discharged home but has returned secondary to progressive worsening of her pain and difficulties with her ADLs. She lives independently. She had been taking the muscle relaxants and Tylenol without relief in her symptoms. She does report incontinence secondary to overflow given inability to ambulate. She denies any abdominal pain, chest pain, shortness of breath, or dizziness. She states the pain radiates into her left flank. Related Data Home Medications Medication Instructions Recorded Confirmed aspirin 81 mg tablet,delayed 81 mg PO DAILY tab-cap 08/03/12 07/26/21 release (Aspir-) omega-3 fatty acids-fish oil 360 1 ea PO DAILY 08/03/12 07/26/21 mg-1,200 mg capsule vitamin A 2,400 mcg capsule 8,000 units PO DAILY tab-cap 05/15/17 07/26/21 ibuprofen 600 mg tablet 600 mg PO TID PRN #30 tab 06/02/18 07/26/21 acetaminophen 500 mg tablet 500 mg PO Q4H PRN 05/19/19 07/26/21 (Tylenol Extra Strength) naproxen sodium 220 mg capsule 220 mg PO Q12H PRN 05/19/19 07/26/21 (Aleve) fluoxetine 20 mg capsule 20 mg PO DAILY #90 tab-cap 11/19/20 07/26/21 atorvastatin 80 mg tablet 80 mg PO DAILY #90 tab-cap 01/02/21 07/26/21 omeprazole 20 mg capsule,delayed 20 mg PO DAILY #90 tab-cap 01/02/21 07/26/21 release trazodone 50 mg tablet 50 mg PO HS #90 tab-cap 01/02/21 07/26/21 calcium carbonate 600 mg-vitamin 600 cap PO DAILY 02/21/21 07/26/21 D3 12.5 mcg (500 unit) capsule hydrochlorothiazide 12.5 mg capsule 12.5 mg PO DAILY #90 tab-cap 02/21/21 07/26/21 levothyroxine 88 mcg tablet 88 mcg PO DAILY #90 tab-cap 02/21/21 07/26/21 losartan 25 mg tablet 25 mg PO DAILY #90 tab-cap 02/21/21 07/26/21 mometasone 50 mcg/actuation nasal 1 - 2 spray NS DAILY PRN #3 unit 02/21/21 07/26/21 spray (Nasonex) prednisone 20 mg tablet See Rx Instructions .ROUTE 07/22/21 07/26/21 .COMPLEX #12 tab methocarbamol 500 mg tablet 500 mg PO Q6H PRN #30 tab 07/23/21 07/26/21 Previous Rx's Medication Instructions Recorded ibuprofen 600 mg tablet 600 mg PO TID PRN #30 tab 06/02/18 fluoxetine 20 mg capsule 20 mg PO DAILY #90 tab-cap 11/19/20 atorvastatin 80 mg tablet 80 mg PO DAILY #90 tab-cap 01/02/21 omeprazole 20 mg capsule,delayed 20 mg PO DAILY #90 tab-cap 01/02/21 release trazodone 50 mg tablet 50 mg PO HS #90 tab-cap 01/02/21 hydrochlorothiazide 12.5 mg capsule 12.5 mg PO DAILY #90 tab-cap 02/21/21 levothyroxine 88 mcg tablet 88 mcg PO DAILY #90 tab-cap 02/21/21 losartan 25 mg tablet 25 mg PO DAILY #90 tab-cap 02/21/21 mometasone 50 mcg/actuation nasal 1 - 2 spray NS DAILY PRN #3 unit 02/21/21 spray (Nasonex) prednisone 20 mg tablet See Rx Instructions .ROUTE 07/22/21 .COMPLEX #12 tab methocarbamol 500 mg tablet 500 mg PO Q6H PRN #30 tab 07/23/21 Allergies Allergy/AdvReac Type Severity Reaction Status Date / Time Sulfa (Sulfonamide Allergy Severe TONGUE Verified 07/26/21 16:30 Antibiotics) SWELLING lisinopril AdvReac Intermediate COUGH NOTE Verified 07/26/21 16:30 DATED 04/06/19 General Stated Complaint: Nk/Back Pain KATY: 3 Review of Systems <GLO Phelan - Last Filed: 07/27/21 13:43> All systems reviewed & are unremarkable except as noted in HPI and below PFSH <GLO Phelan - Last Filed: 07/27/21 13:43> All Active Problems (Updated 07/26/21 @ 23:37 by Nicanor Kennedy NP) Acute low back pain due to trauma (Acute) DVT prophylaxis (Acute) Lumbar compression fracture (Acute) Ambulatory dysfunction (Acute) Acute low back pain (Acute) Hx of compression fracture of spine (Acute) Back pain with history of spinal surgery (Acute) Fall at home (Acute) Contusion of lower back (Acute) DEEP (obstructive sleep apnea) (Chronic ~06/2021) Sleep study 06/23/21 severe Restless legs (Chronic) 06/06/21 sleep note Snoring (Acute) 06/06/21 Sleep note Urinary incontinence, urge (Chronic) Chronic kidney disease (CKD), stage III (moderate) (Chronic) 10/2014: renal US neg, cysts; 05/2018 renal US: B/L renal cysts Unspecified essential hypertension (Chronic 08/04/11) FRS 6% Peripheral vascular disease (Chronic 08/04/11) Osteoporosis (Chronic 08/13/12) T -2.8 DEXA 2003; followed at [facility] [place] Hypothyroidism, unspecified (Chronic 08/13/12) Hyperlipidemia (Chronic 08/19/13) On high intensity statin therapy Generalized osteoarthrosis, unspecified site (Chronic 08/04/11) Depressive disorder (Chronic 08/04/11) Allergic rhinitis, unspecified (Chronic 08/13/12) Medical History (Updated 07/26/21 @ 23:37 by Nicanor Kennedy NP) Cecal polyp Colon polyps Compression fracture of lumbar vertebra (~2017) L3; s/p vertebral augmentation ([facility]) Hot flashes (02/09/15) H/o gabapentin Rx; titrated off 2019 & no recurrence Malignant neoplasm of breast (female), unspecified site (08/04/11) Dr Elvis foley [facility] L mastectomy 11/24/2000 chem Rx, 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 reports tummy tuck at same time to make breast History of back surgery History of bilateral cataract extraction Hx of repair of rotator cuff Right Tonsillectomy (~1967) Family History Brother Diabetes Heart disease S/p bypass surgery Brother No problems noted. Social History Smoking/Tobacco Use Status: Former Tobacco Use Quit Date: 06/01/79 Smoking risk assessment performed?: Yes Alcohol Intake: current Alcohol Intake frequency: 0-2 drinks per day Alcohol type: hard liquor Drug use: Never Substance use type: does not use Details: alcohol: t-1, one drink Caregiver/Support person: No Communication Needs: None Pets and animals: Yes Pets and animals: cat(s) Current gender identity: female What type of physical activity do you participate in: other Details: stretches Frequency: daily Seatbelt use: always Water heater temp set <120 deg: Yes Working smoke detector in home: Yes Fire extinguisher in home: Yes Carbon monox detector in home: Yes Do you feel safe at home: Yes Exam <GLO Phelan - Last Filed: 07/27/21 13:43> Const General: cooperative and no acute distress HENMT Head: normal to inspection Eyes Pupils: PERRL Neck Other: No midline tenderness Chest Other: No visible sign of trauma Resp Effort & Inspection: normal respiratory effort Auscultation: clear to auscultation bilaterally Cardio Rate: regular rate Rhythm: regular rhythm GI Inspection: normal to inspection Other: CVA tenderness on left, no abdominal tenderness anteriorly, no visible sign of trauma Back/Spine/Pelvis Other: Lumbar and thoracic spine tenderness, no visible sign of trauma, no bony crepitus Neuro General: patient alert and patient oriented x3 Other: Strength and sensation intact distally, GCS 18, neurovascularly intact bilateral lower extremities Extrem Other: No hip tenderness, no visible sign of trauma Course <GLO Phelan - Last Filed: 07/27/21 13:43> Vital Signs Vital signs: Vital Signs Temperature 36.3 C L 07/26/21 13:27 Pulse 63 07/26/21 13:27 Respiratory Rate 14 07/26/21 13:27 Blood Pressure 178/82 H 07/26/21 13:27 Pulse Oximetry 98 07/26/21 13:27 Temperature 36.3 C L 07/26/21 13:27 Temperature Source Temporal Artery Scan 07/26/21 13:27 Pulse 63 07/26/21 13:27 Respiratory Rate 14 07/26/21 13:27 Respiratory Effort Non-Labored 07/26/21 13:33 Blood Pressure 178/82 H 07/26/21 13:27 Blood Pressure Position Supine 07/26/21 13:27 Pulse Oximetry 98 07/26/21 13:27 Oxygen Delivery Method Room Air 07/26/21 13:27 Oxygen Flow Rate 0 07/26/21 13:27 Pain Level 7 07/26/21 15:17 Comment 07/26/21 13:27 Lab/Test Results Lab/Test Results: Laboratory Tests Range/Units 07/26/21 07/26/21 15:07 15:20 WBC (4.4-10.8) 10^3/uL 13.76 H RBC (3.93-5.22) 10^6/uL 4.36 Hgb (11.2-15.7) g/dL 14.5 Hct (36.0-46.0) % 43.0 MCV (80-95) fL 98.6 H MCH (27.0-33.0) pg 33.3 H MCHC (32.0-36.0) % 33.7 RDW (11.7-14.6) % 14.4 Plt Count (130-400) 10^3/uL 326 MPV (8.0-11.0) fL 8.9 Immature Gran % 0.5 Neutrophils % 80.3 Lymphocytes % 11.0 Monocytes % 8.0 Eosinophils % 0.1 Basophils % 0.1 Nucleated RBC % % 0 Absolute Neutrophils (1.2-6.7) 10^3/uL 11.05 H Absolute Lymphocytes (1.2-3.4) 10^3/uL 1.51 Absolute Monocytes (0.1-0.8) 10^3/uL 1.10 H Absolute Eosinophils (0.0-0.7) 10^3/uL 0.01 Absolute Basophils (0.0-0.2) 10^3/uL 0.01 Urine Color (Yellow) Yellow Urine Clarity (Clear) Clear Urine pH (5-8) 5.5 Ur Specific Edwards (1.005-1.025) >= 1.030 H Urine Protein (Negative) mg/dL Negative Urine Ketones (Negative) mg/dL Negative Urine Blood (Negative) Trace-intact H Urine Nitrite (Negative) Negative Urine Bilirubin (Negative) Negative Urine Urobilinogen (Up TO 0.2) EU/dL 0.2 Ur Leukocyte Esterase (Negative) Negative Urine Glucose (Negative) mg/dL Negative Sign Out <GLO Phelan - Last Filed: 07/27/21 13:43> Sign Out Data: Sign Out Comment: pending ct scan, reassessment, labs Last updated by Lorraine Pate PA at 07/26/21 16:38
[2021-07-26 15:50] LABS: Potassium 2.9 mmol/L (3.5-5.1)
[2021-07-26 15:51] LABS: Bacteria Rare HPF (Negative); C & S Indicated? Yes; Crystals Moderate Amorphous HPF (Negative); Epithelial Cells Negative HPF (Negative); Mucus Moderate (Negative); RBC 0-2 HPF (0-2)
[2021-07-26] MEDS: Omnipaque 350 MG/ML 100 ML BTL IJ (16:15)
--- NOTE | 2021-07-26 16:45 | RT.EKG_ITS ---
APPROVED REPORT Exam: Resting ECG Reason for Exam: hypokalemia Patient Location: E HR:73 bpm ECG Measurements Heart Rate 73 AXIS OR 158 P 77 QRSd 85 QRS 4 QT 425 T 53 QTc 468 Conclusion Sinus rhythm...normal P axis, V-rate 60- 99. Sinus. Normal axis. No STEMI. I have reviewed and interpreted ECG and agree with software generated interpretation.
[2021-07-26] MEDS: Potassium Chloride 20 MEQ TABCR 40 MEQ PO (16:53)
[2021-07-26 16:58] LABS: Magnesium 1.9 mg/dL (1.8-2.4)
[2021-07-26] MEDS: HYDROmorphone 2 MG/ML VIAL 0.5 MG IVP (17:49)
--- NOTE | 2021-07-26 19:42 | HPE_ITS ---
Date of service: 07/26/21 Time of Service: 19:42 Assessment and Plan Assessment and plan (1) Acute low back pain: Status: Acute Assessment and plan: will prescribe robaxin, nucynta, lidocaine patches, toradol and APAP; consult P.T. in the morning to evaluate and treat for ambulatory dysfunction secondary to back pain from fall and contusion. May need MRI on Thursday to evaluate for new lumbar compression fractures (loss of height in L1 and also in L3 where her kyphoplasty is located). (2) Ambulatory dysfunction: Status: Acute Assessment and plan: as above (3) Lumbar compression fracture: Status: Acute Assessment and plan: check MRI on Thursday if she is still an in patient; otherwise her PCP has her set up at [facility] for MRI of her spine (4) Hypothyroidism, unspecified: Status: Chronic Assessment and plan: cont. current treatmeent w/ levothyroxine Qualifiers: Hypothyroidism type: unspecified Qualified Code(s): E03.9 - Hypothyro idism, unspecified (5) Depressive disorder: Status: Chronic Assessment and plan: cont. fluoxetine (6) DEEP (obstructive sleep apnea): Status: Chronic (7) Unspecified essential hypertension: Status: Chronic Assessment and plan: cont. losartan, hold HCTZ as she has not been eating and drinking enough and she is already hypokalemic. replace her potassium orally and repeat her BMP in the morning (8) DVT prophylaxis: Status: Acute Assessment and plan: enoxaparin SC History of Present Illness History of Present Illness Chief Complaint: Low back pain, generalized weakness, inability to ambulate Narrative: 76-year-old female who lives alone who had a mechanical fall on Thursday July 22, 2021 was evaluated through the emergency department. She had a CT scan of the lumbar spine that showed an old deformity of the L3 with evidence of previous kyphoplasty/vertebroplasty with no acute lumbar fractures detected. CT of the head showed cerebral atrophy and microvascular ischemic changes but no acute intracranial process. She was given oxycodone and Motrin and IV fluids routine labs were ordered. Patient was able to ambulate and her pain was much better she was discharged home with prescription for tapering dose of prednisone. She now presents emergency department this afternoon due to progressive low back pain and difficulty performing her ADLs and difficulty ambulating. She does have a history of chronic urinary incontinence but no bowel incontinence and no saddle block anesthesia and no paresthesias in her legs. She has had no exertional dyspnea or chest tightness. She has had no syncope. She was reevaluated in the emergency department underwent repeat CT scan of the abdomen pelvis with reconstruction of the thoracic spine. Abdomen and pelvis CT scan showed bilateral renal cysts no hydronephrosis no kidney stones and no renal masses. Abdominal aorta was not enlarged. She had no ascites and no evidence of mesenteric or bowel wall hematoma. Liver and gallbladder and pancreas and spleen were all unremarkable. Pelvic ultrasound also was unremarkable except there was height loss of L3 vertebral body superior endplate with cement at that level. No acute fracture lines were seen elsewhere in the lumbar vertebral bodies. Thoracic spine show no evidence of acute compression fracture or listhesis. There is some slight loss of height of L1 which was felt not to be acute. Patient was treated in the emergency department with Tylenol and oxycodone and subsequently fentanyl. Her labs on admission showed a mild leukocytosis of 13,000 no anemia. She has a macrocytic changes. Chemistry profile showed a low potassium of 2.9 with normal BUN and creatinine and normal LFTs and normal lipase, normal magnesium.. Patient was given supplemental potassium 40 mEq in the emergency department. Patient is now admitted for treatment of decreased ADL performance, acute lower back pain. She may need an MRI scan next week to evaluate for possible new lumbar compression fracture of L1. She will be admitted for physical therapy analgesics anti-inflammatories and muscle relaxers and a short course of prednisone. Review of Systems All systems reviewed & are unremarkable except as noted in HPI and below Cardiovascular Comments: Negative for chest pain or pressure or exertional dyspnea. Negative for syncope or palpitations Respiratory Comments: Negative for cough sputum production or dyspnea or wheezing Gastrointestinal Comments: Positive for decreased oral intake over the last 3 days. She has had nausea ever since she had the fall. She has been constipated although her last bowel movement was on Thursday the day after she was in the emergency department. No melena no hematochezia Genitourinary Comments: No burning with urination she does have urinary incontinence with coughing or sneezing. Musculoskeletal Comments: See HPI Neurologic Comments: Negative for focal paresthesias or paraparesis Psychiatric Comments: Positive for chronic depression PFSH All Active Problems (Updated 07/26/21 @ 20:35 by David Srivastava) DVT prophylaxis (Acute) Lumbar compression fracture (Acute) Ambulatory dysfunction (Acute) Acute low back pain (Acute) Hx of compression fracture of spine (Acute) Back pain with history of spinal surgery (Acute) Fall at home (Acute) Contusion of lower back (Acute) DEEP (obstructive sleep apnea) (Chronic ~06/2021) Sleep study 06/23/21 severe Restless legs (Chronic) 06/06/21 sleep note Snoring (Acute) 06/06/21 Sleep note Urinary incontinence, urge (Chronic) Chronic kidney disease (CKD), stage III (moderate) (Chronic) 10/2014: renal US neg, cysts; 05/2018 renal US: B/L renal cysts Unspecified essential hypertension (Chronic 08/04/11) FRS 6% Peripheral vascular disease (Chronic 08/04/11) Osteoporosis (Chronic 08/13/12) T -2.8 DEXA 2003; [place] [facility] Hypothyroidism, unspecified (Chronic 08/13/12) Hyperlipidemia (Chronic 08/19/13) On high intensity statin therapy Generalized osteoarthrosis, unspecified site (Chronic 08/04/11) Depressive disorder (Chronic 08/04/11) Allergic rhinitis, unspecified (Chronic 08/13/12) Medical History (Updated 07/26/21 @ 20:35 by David Srivastava) Cecal polyp Colon polyps Compression fracture of lumbar vertebra (~2017) L3; s/p vertebral augmentation ([facility]) Hot flashes (02/09/15) H/o gabapentin Rx; titrated off 2018 & no recurrence Malignant neoplasm of breast (female), unspecified site (08/04/11) Dr Elvis foley [facility] [place] L mastectomy 11/24/2000 chem Rx, 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 reports tumbella zamarripa at same time to make breast History of back surgery History of bilateral cataract extraction Hx of repair of rotator cuff Right Tonsillectomy (~1967) Family History Brother Diabetes Heart disease S/p bypass surgery Brother No problems noted. Social History Smoking/Tobacco Use Status: Former Tobacco Use Quit Date: 06/01/79 Smoking risk assessment performed?: Yes Alcohol Intake: current Alcohol Intake frequency: 0-2 drinks per day Alcohol type: hard liquor Drug use: Never Substance use type: does not use Details: alcohol: t-1, one drink Caregiver/Support person: No Communication Needs: None Pets and animals: Yes Pets and animals: cat(s) Current gender identity: female What type of physical activity do you participate in: other Details: stretches Frequency: daily Seatbelt use: always Water heater temp set <120 deg: Yes Working smoke detector in home: Yes Fire extinguisher in home: Yes Carbon monox detector in home: Yes Do you feel safe at home: Yes Meds Allergies and Home Medications Allergies Allergy/AdvReac Type Severity Reaction Status Date / Time Sulfa (Sulfonamide Allergy Severe TONGUE Verified 07/26/21 16:30 Antibiotics) SWELLING lisinopril AdvReac Intermediate COUGH NOTE Verified 07/26/21 16:30 DATED 04/06/19 Home Medications Medication Instructions Recorded Confirmed Type aspirin 81 mg tablet,delayed 81 mg PO DAILY tab-cap 08/03/12 07/26/21 History release (Aspir-) omega-3 fatty acids-fish oil 360 1 ea PO DAILY 08/03/12 07/26/21 History mg-1,200 mg capsule vitamin A 2,400 mcg capsule 8,000 units PO DAILY tab-cap 05/15/17 07/26/21 History ibuprofen 600 mg tablet 600 mg PO TID PRN #30 tab 06/02/18 07/26/21 Rx acetaminophen 500 mg tablet 500 mg PO Q4H PRN 05/19/19 07/26/21 History (Tylenol Extra Strength) naproxen sodium 220 mg capsule 220 mg PO Q12H PRN 05/19/19 07/26/21 History (Aleve) fluoxetine 20 mg capsule 20 mg PO DAILY #90 tab-cap 11/19/20 07/26/21 Rx atorvastatin 80 mg tablet 80 mg PO DAILY #90 tab-cap 01/02/21 07/26/21 Rx omeprazole 20 mg capsule,delayed 20 mg PO DAILY #90 tab-cap 01/02/21 07/26/21 Rx release trazodone 50 mg tablet 50 mg PO HS #90 tab-cap 01/02/21 07/26/21 Rx calcium carbonate 600 mg-vitamin 600 cap PO DAILY 02/21/21 07/26/21 History D3 12.5 mcg (500 unit) capsule hydrochlorothiazide 12.5 mg capsule 12.5 mg PO DAILY #90 tab-cap 02/21/21 07/26/21 Rx levothyroxine 88 mcg tablet 88 mcg PO DAILY #90 tab-cap 02/21/21 07/26/21 Rx losartan 25 mg tablet 25 mg PO DAILY #90 tab-cap 02/21/21 07/26/21 Rx mometasone 50 mcg/actuation nasal 1 - 2 spray NS DAILY PRN #3 unit 02/21/2107/03 Rx spray (Nasonex) prednisone 20 mg tablet See Rx Instructions .ROUTE 07/22/21 07/26/21 Rx .COMPLEX #12 tab methocarbamol 500 mg tablet 500 mg PO Q6H PRN #30 tab 07/23/21 07/26/21 Rx Exam Narrative Exam Narrative: Older female lying in bed in supine position. Difficult for her to roll over in bed for me to examine her. She complained of a lot of back spasms when she moves. HEENT is unremarkable neck is supple no JVD normal carotid pulses lungs are clear to auscultation heart regular rate and rhythm without murmur rub or gallop abdomen is soft nondistended normal bowel sounds Lower back is tender over the lumbar spine from L1-L4. No paralumbar muscle tenderness. Neuro exam grossly intact no focal cranial nerve deficits. She has normal range of motion and strength in her arms and hands and normal sensation to light touch. Manual muscle testing of the muscles of her feet ankles legs is normal with normal dorsiflexion and plantarflexion at the ankles normal extension and flexion at the knees and normal hip flexion extension. There is no pronator drift in her arms or her legs. Sensory exam of her legs are grossly intact to light touch. DTR are intact Results Labs Result diagrams: 07/26/21 15:07 07/26/21 15:07 Labs: Laboratory Results - last 24 hr 07/26/21 07/26/21 07/26/21 15:07 15:07 15:07 WBC 13.76 H RBC 4.36 Hgb 14.5 Hct 43.0 MCV 98.6 H MCH 33.3 H MCHC 33.7 RDW 14.4 Plt Count 326 MPV 8.9 Immature Gran % 0.5 Neutrophils % 80.3 Lymphocytes % 11.0 Monocytes % 8.0 Eosinophils % 0.1 Basophils % 0.1 Nucleated RBC % 0 Absolute Neutrophils 11.05 H Absolute Lymphocytes 1.51 Absolute Monocytes 1.10 H Absolute Eosinophils 0.01 Absolute Basophils 0.01 Sodium 137 Potassium 2.9 L Chloride 96 L Carbon Dioxide 30.3 Anion Gap 10.7 BUN 16 Creatinine 0.9 Estimated GFR/1.73 m2 >= 60.00 Glucose 95 Calcium 9.1 Magnesium Total Bilirubin 1.1 H AST 19 ALT 21 Alkaline Phosphatase 105 Total Protein 8.1 Albumin 4.0 Lipase 146 Urine Color Urine Clarity Urine pH Ur Specific [place] Urine Protein Urine Ketones Urine Blood Urine Nitrite Urine Bilirubin Urine Urobilinogen Ur Leukocyte Esterase Urine RBC Urine WBC Ur Epithelial Cells Urine Crystals Urine Bacteria Urine Mucus Ur Culture Indicated? Urine Glucose COVID-19 Source Patient ABO/Rh O Positive Antibody Screen NEGATIVE 07/26/21 07/26/21 07/26/21 15:07 15:20 17:57 WBC RBC Hgb Hct MCV MCH MCHC RDW Plt Count MPV Immature Gran % Neutrophils % Lymphocytes % Monocytes % Eosinophils % Basophils % Nucleated RBC % Absolute Neutrophils Absolute Lymphocytes Absolute Monocytes Absolute Eosinophils Absolute Basophils Sodium Potassium Chloride Carbon Dioxide Anion Gap BUN Creatinine Estimated GFR/1.73 m2 Glucose Calcium Magnesium 1.9 Total Bilirubin AST ALT Alkaline Phosphatase Total Protein Albumin Lipase Urine Color Yellow Urine Clarity Clear Urine pH 5.5 Ur Specific [place] >= 1.030 H Urine Protein Negative Urine Ketones Negative Urine Blood Trace-intact H Urine Nitrite Negative Urine Bilirubin Negative Urine Urobilinogen 0.2 Ur Leukocyte Esterase Negative Urine RBC 0-2 Urine WBC 5-10 Ur Epithelial Cells Negative Urine Crystals Moderate Amorphous Urine Bacteria Rare Urine Mucus Moderate Ur Culture Indicated? Yes Urine Glucose Negative COVID-19 Source Nasal/Nares Patient ABO/Rh Antibody Screen Last Vital Signs Temp 36.4 C L 07/26/21 19:17 Pulse 68 07/26/21 19:17 Resp 16 07/26/21 19:17 BP 151/81 H 07/26/21 19:17 Pulse Ox 99 07/26/21 19:17
[2021-07-26] MEDS: Normal Saline Flush 10 ML SYR IVP (20:31)
[2021-07-26] MEDS: Docusate Sodium 100 MG CAP PO (20:33)
[2021-07-26] MEDS: Methocarbamol 750 MG TAB PO (20:35)
[2021-07-26] MEDS: Atorvastatin 40 MG TAB 80 MG PO (20:35)
[2021-07-26] MEDS: predniSONE 20 MG TAB 40 MG PO (20:36)
[2021-07-26] MEDS: Pantoprazole 40 MG TABCR PO (20:36)
[2021-07-26] MEDS: Potassium Chloride 10 MEQ CAPCR 30 MEQ PO (20:39)
[2021-07-26] MEDS: Ketorolac 15 MG/ML VIAL IVP (20:40)
[2021-07-26] MEDS: Acetaminophen 500 MG TAB 1000 MG PO (20:49)
[2021-07-26] MEDS: traZODone 50 MG TAB PO (22:02)
[2021-07-27 07:02] VITALS: BP 145/81; PULSE 74; RESP 18; TEMP 36.5; O2SAT 97
[2021-07-27 07:16] LABS: Source Nasal/Nares
[2021-07-27 07:17] LABS: COVID-19 PCR Negative (Negative)
[2021-07-27] MEDS: Methocarbamol 750 MG TAB PO ×4 (07:40→19:12)
[2021-07-27] MEDS: Calcium 600mg/Vit D 200U TAB 1 TAB PO (07:41)
[2021-07-27] MEDS: Levothyroxine 88 MCG TAB PO (07:41)
[2021-07-27] MEDS: Pantoprazole 40 MG TABCR PO (07:41)
[2021-07-27] MEDS: Losartan 25 MG TAB PO (07:42)
[2021-07-27] MEDS: Omega-3 Fatty Acids 1000 MG CAP PO (07:42)
[2021-07-27] MEDS: FLUoxetine 20 MG CAP PO (07:42)
[2021-07-27] MEDS: Acetaminophen 500 MG TAB 1000 MG PO ×3 (07:42→19:12)
[2021-07-27] MEDS: predniSONE 20 MG TAB 40 MG PO (07:42)
[2021-07-27] MEDS: Enoxaparin 40 MG/0.4 ML SYR SC (07:44)
[2021-07-27 07:58] LABS: HGB 14.2 g/dL (11.2-15.7); MCH 33.3 pg (27.0-33.0); MCV 100.9 fL (80-95); MPV 8.9 fL (8.0-11.0); Platelet Count 349 10^3/uL (130-400); RBC 4.26 10^6/uL (3.93-5.22); RDW 14.6 % (11.7-14.6); WBC 9.18 10^3/uL (4.4-10.8)
[2021-07-27 08:11] LABS: Anion Gap 9.8 mmol/L (3-11); BUN 23 mg/dL (7-18); CO2 25.2 mmol/L (21.0-32.0); CREATININE 1.1 mg/dL (0.55-1.02); Chloride 100 mmol/L (98-107); Estimated GFR 48.16 (mL/min/1.73m2); Glucose 101 mg/dL (74-106); Potassium 4.7 mmol/L (3.5-5.1); Sodium 135 mmol/L (136-145)
--- NOTE | 2021-07-27 09:42 | INITIAL_ITS ---
- If Service Date Differs Date of service: 07/27/21 Time of Service: 09:42 Care Management Initial Assess REASON FOR HOSPITALIZATION:: acute low back pain PAST MEDICAL HISTORY/PAST SURGICAL HISTORY:: All Active Problems (Updated 07/26/21 @ 20:35 by David Srivastava). DVT prophylaxis (Acute). Lumbar compression fracture (Acute). Ambulatory dysfunction (Acute). Acute low back pain (Acute). Hx of compression fracture of spine (Acute). Back pain with h istory of spinal surgery (Acute). Fall at home (Acute). Contusion of lower back (Acute). DEEP (obstructive sleep apnea) (Chronic ~06/2021). Sleep study 06/23/21. severe. Restless legs (Chronic). 06/06/21 sleep note. Snoring (Acute). 06/06/21 Sleep note. Urinary incontinence, urge (Chronic). Chronic kidney disease (CKD), stage III (moderate) (Chronic). 10/2014: renal US neg, cysts; 05/2018 renal US: B/L renal cysts. Unspecified essential hypertension (Chronic 08/04/11). FRS 6%. Peripheral vascular disease (Chronic 08/04/11). Osteoporosis (Chronic 08/13/12). T -2.8 DEXA 2003; [place] [facility] [place] Hypothyroidism, unspecified (Chronic 08/13/12). Hyperlipidemia (Chronic 08/19/13). On high intensity statin therapy. Generalized osteoarthrosis, unspecified site (Chronic 08/04/11). Depressive disorder (Chronic 08/04/11). Allergic rhinitis, unspecified (Chronic 08/13/12). Medical History (Updated 07/26/21 @ 20:35 by David Srivastava). Cecal polyp. Colon polyps. Compression fracture of lumbar vertebra (~2017). L3; s/p vertebral augmentation ([facility] [place]). Hot flashes (02/09/15). H/o gabapentin Rx; titrated off 2018 & no recurrence. Malignant neoplasm of breast (female), unspecified site (08/04/11). 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 Senile cataract, unspecified (08/04/11). Tubular adenoma of colon (03/06/17). Surgical History (Updated 07/26/21 @ 20:18 by David Srivastava). Abdominal hysterectomy. Breast, Mastectomy (~1999). left breast, pt. reports tummy tuck at same time to make breast. History of back surgery. History of bilateral cataract extraction. Hx of repair of rotator cuff. Right. Tonsillectomy (~1967) PREVIOUS FUNCTIONAL STATUS/SOCIAL/FAMILY SUPPORTS:: Kourtney, who prefers to be called Jordan, lives alone in a single family home in [place], [place] She is , her having about 3 years ago. Jordan is a retired [employer]. She has no children of her own but does have a step son from her late 's previous marraige. jordan is independent at baseline but does have a cane and a walker which she uses as needed. CURRENT FUNCTIONAL STATUS:: Jordan was sitting up in bed when CM met with her. She ambulated well with PT but continues to complain of pain in her back. She informed CM that she is sure that she has another compression fracture as it feels just like her last one did. That one was surgically repaired with glue at [facility] [place], per Jordan, and she plans to have the same treatment for this one. Jordan shared that her sister is a nurse and plans to come to stay with her at the end of next week for whatever period of time she needs help. Per PT, Jordan is appropriate to return home with OP PT. ADVANCE DIRECTIVES:: none on file Has patient been provided with info about the portal/API?: Yes Did the patient sign up for the portal?: Yes (previously) CODE STATUS:: Full Code INSURANCE COVERAGE / FINANCIAL ISSUES:: Medicare. BC BS CURRENT HOME/COMMUNITY SERVICES/EQUIPMENT:: has a cane and a walker PRIMARY CARE PHYSICIAN:: Mei Herrera POTENTIAL DISCHARGE NEEDS:: Follow up with PCP and plan of care PATIENT/FAMILY EDUCATION NEEDS:: Review of discharge instructions, follow up plan, limitations, medications, activity, discuss Ask Me Three TRANSPORTATION:: via private vehicle with friend/family PLAN:: Jordan will corinneley be discharged home, possibly with new home health services for nursing and PT. She will follow up with her community providers and plan of care and transport via private vehicle. CM will contiunue to support Jordan and assess for ongoing discharge concerns.
[2021-07-27] MEDS: Ketorolac 15 MG/ML VIAL IVP (11:08)
--- NOTE | 2021-07-27 11:15 | IN_ITS ---
Date of service: 07/27/21 Time of Service: 11:25 PT Notes Visit Reasons: Low Back Pain, Ambulatory Dysfunction, Falls Physical Therapy Inpatient Initial Evaluation Date: 07/27/2021 Referring Doctor: David Clark MD PT Orders: PT CONSULT: Fall safety assessment. Evaluate and treat back pain and gait instability Precautions: Fall. Standard. Activity as tolerated. Back precautions on. Patient Profile/Admitting Diagnosis: Elaine is a 76-year-old female with past medical history significant for hypothyroidism, depression, and DEEP now diagnosed with acute low back pain, ambulatory dysfunction, and lumbar region fracture. PMHX: All Active Problems?(Updated 07/26/21 @ 20:35 by David Srivastava) DVT prophylaxis (Acute) Lumbar compression fracture (Acute) Ambulatory dysfunction (Acute) Acute low back pain (Acute) Hx of compression fracture of spine (Acute) Back pain with history of spinal surgery (Acute) Fall at home (Acute) Contusion of lower back (Acute) DEEP (obstructive sleep apnea) (Chronic ~06/2021) Sleep study 06/23/21 Severe Restless legs (Chronic) 06/06/21 sleep noteSnoring (Acute) 06/06/21 Sleep noteUrinary incontinence, urge (Chronic) Chronic kidney disease (CKD), stage III (moderate) (Chronic) 10/2014: renal US neg, cysts; 05/2018 renal US: B/L renal cystsUnspecified essential hypertension (Chronic 08/04/11) FRS 6% Peripheral vascular disease (Chronic 08/04/11) Osteoporosis (Chronic 08/13/12) T -2.8 DEXA 2003; [place] [facility] Hypothyroidism, unspecified (Chronic 08/13/12) Hyperlipidemia (Chronic 08/19/13) On high intensity statin therapy Generalized osteoarthrosis, unspecified site (Chronic 08/04/11) Depressive disorder (Chronic 08/04/11) Allergic rhinitis, unspecified (Chronic 08/13/12) Medical History?(Updated 07/26/21 @ 20:35 by David Srivastava) Cecal polyp Colon polyps Compression fracture of lumbar vertebra (~2017) L3; s/p vertebral [place]Hot flashes (02/09/15) H/o gabapentin Rx; titrated off 2018 & no recurrence Malignant neoplasm of breast (female), unspecified site (08/04/11) Dr Elvis foley [facility] mastectomy 11/24/2000 chem Rx, tamoxifen then 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 reports tummy tuck at same time to make breast History of back surgery History of bilateral cataract extraction Hx of repair of rotator cuff Right Tonsillectomy (~1967) Social History/Home Situation: Independent with all mobility ADLs with use of small-based quad cane. Lives alone in a private home with a stair lift to enter the house and another stair lift to the second floor of the house where her bedroom is. [facility]. Retired licensed physical therapist assistant. Equipment Owned/DME: Stair lift, SBQC, FWW Subjective: Complains of not feeling well in the tummy and is a little nauseated. Anticipates that if she moves, her pain level will shoot up. Was wondering if another pain pill can be taken before PT mobilizes her. Nurse Bonnie was quick to provide Tramadol to patient. Patient agrreable to be moved about 25 minutes after Tramadol intake. Objective: General Observation: Supine in bed. Montague catheter in place. Mental Status: Alert and oriented as to person, place, time, and purpose. Able to pay attention, focus, and respond appropriately. Pain: 3/10 in low back area at rest; 6/10 pain after walking 75 feet using front wheel walker ROM: Right Upper Extremity: Shoulder Flexion WFL. Shoulder abduction WFL. Elbow flexion WFL. Wrist flexion WFL. Functional opening and closing of hand WFL. Left Upper Extremity: Shoulder Flexion WFL. Shoulder abduction WFL. Elbow flexion WFL. Wrist flexion WFL. Functional opening and closing of hand WFL. Right Lower Extremity: Hip flexion WFL. Hip abduction WFL. Knee flexion WFL. Ankle dorsiflexion WFL. Ankle plantarflexion WFL. Left Lower Extremity: Hip flexion WFL. Hip abduction WFL. Knee flexion WFL. Ankle dorsiflexion WFL. Ankle plantarflexion WFL. Strength: Right Upper Extremity: Shoulder flexors 5/5. Shoulder abductors 5/5. Elbow flexors 5/5. Elbow extensors 5/5. Coater Smoking Pipe strong. Left Upper Extremity: Shoulder flexors 5/5. Shoulder abductors 5/5. Elbow flexors 5/5. Elbow extensors 5/5. Coater Smoking Pipe strong. Right Lower Extremity: Hip flexors 4-/5. Hip abductors 4-/5. Knee flexors 4-/5. Knee extensors 4-/5. Ankle dorsiflexors 5/5. Ankle plantarflexors 5/5. Left Lower Extremity: Hip flexors 4-/5. Hip abductors 4-/5. Knee flexors 4-/5. Knee extensors 4-/5. Ankle dorsiflexors 5/5. Ankle plantarflexors 5/5. Bed Mobility/Transfers: Rolling independent Supine to sit independent Sit to supine minimal assist to right LE due to pain level Sit to stand with contact-guard assist Stand to sit with standby assist Bed to reclining chair contact-guard assist Gait: Instructed patient with level surface ambulation of 75 feet +75feet requiring standby assist with front wheeled walker. Mimi decreased. Step height decreased. Step length decreased. Pain level of 6/10 pain in the back requiring seated rest. Balance: Static Sitting: Normal Dynamic Sitting: Good Static Standing: Fair Dynamic Standing: Fair Special Tests: Mobility Limitations Standardized Measure [facility] AM-PAC 6 clicks Basic Mobility Inpatient Short Form: Raw Score: 18 CMS Score: 47% deficit Informed Consent/Education: Patient was instructed in purpose of PT consult and plan of care. Agreeable to proceed with established PT POC to achieve personal goals. Assessment: No evidence of acute fracture per most recent lumbar spine CT. No numbness in B LE reported. No range of motion deficits although movements needed to be done slowly as her back muscles have been in guarding mode. Jordan is agreeable to using front-wheeled walker to temporarily offload the back during weight bearing activities to reduce pain level. May continue to benefit from back rehabilitation as an out patient. May be able to manage well at home if pain level is controlled is more controlled. Patient presents with clinical signs and symptoms consistent with current/admitting diagnoses that have resulted to mobility limitations, gait instability, generalized weakness, and overall ADL decline as demonstrated by the following impairment level findings: 1. Pain in low back area due to muscle guarding 2. Impaired sitting/standing balance 3. Impaired activity tolerance 4. Limitation of joint range of motion in low back Impairments are contributing to the following functional limitations: 1. Decline in bed mobility skills 2. Decline in transfer skills 3. Difficulty with ambulation without FWW 4. Increased completion time for mobility ADL performance 5. Increased risk for falls 6. Difficulty with managing steps alone safely Patient is assessed as a 74734 moderate complexity based on the following: History: -76 year-old female with past medical history as indicated above Examination: Demonstrable impairment in strength, balance, and mobility level with underlying impairments and functional limitations as exhibited above as well as deficit score of 47% utilizing the [facility] Mobility Inpatient Short Form Presentation: Stable Decision Makin moderate complexity Goals: Goals X1 week 1. Supine-Sit independent 2. Sit-Supine independent 3. Sit-Stand independent 4. Stand-Sit independent with FWW 5. Bed-Chair independent with FWW 6. Chair-Bed independent with FWW 7. Independent gait on level surface with use of FWW for at least 100 feet without report of pain nor dyspnea 8. Good static and dynamic standing balance/tolerance Plan of Care/Treatment Plan: 1-2x/day, 7 days/week x 1 week. Plan of care has been reviewed with the [employer]UFACT[employer] providing the service under Physical Therapy direction. Initiate Physical Therapy intervention for pain management as needed, strengthening, bed mobility, transfers, gait, stairs, balance training, and use of assistive device. DISCHARGE RECOMMENDATIONS: [] Home with no services [] [] Home with services [specify] [X] Home with outpatient PT. Home when medically cleared by hospitalist. Will benefit from outpatient back rehabilitation efforts in order to facilitate return to baseline mobility level and increase ability of patient to thrive at home. [] SNF for continued rehabilitation [] [] Senior Living Care [] [] SNF versus LTC based on ability to participate and progress [] TREATMENT CODE/TIME: 64705 x 20 minutes, 09489 x 12 minutes, beginning at 11:15 AM. Thank you for the opportunity to participate in the care of this patient. Yancy Wyman PT, DPT, CLT [facility] [place], [place]
[2021-07-27] MEDS: Docusate Sodium 100 MG CAP PO ×2 (13:19→19:12)
[2021-07-27] MEDS: Normal Saline Flush 10 ML SYR IVP (13:26)
--- NOTE | 2021-07-27 13:43 | W.PM.PROGNOT ---
Date of Service Date of service: 07/27/21 Time of Service: 13:43 Assessment and Plan Assessment and plan (1) Acute low back pain: Status: Acute Assessment and plan: will prescribe robaxin, nucynta, lidocaine patches, toradol and APAP; consult P.T. in the morning to evaluate and treat for ambulatory dysfunction secondary to back pain from fall and contusion. May need MRI on Thursday to evaluate for new lumbar compression fractures (loss of height in L1 and also in L3 where her kyphoplasty is located). (2) Ambulatory dysfunction: Status: Acute Assessment and plan: as above (3) Lumbar compression fracture: Status: Acute Assessment and plan: check MRI on Thursday if she is still an in patient; otherwise her PCP has her set up at [facility] for MRI of her spine (4) Hypothyroidism, unspecified: Status: Chronic Assessment and plan: cont. current treatmeent w/ levothyroxine Qualifiers: Hypothyroidism type: unspecified Qualified Code(s): E03.9 - Hypothyroidism, unspecified (5) Depressive disorder: Status: Chronic Assessment and plan: cont. fluoxetine (6) DEPE (obstructive sleep apnea): Status: Chronic (7) Unspecified essential hypertension: Status: Chronic Assessment and plan: cont. losartan, hold HCTZ as she has not been eating and drinking enough and she is already hypokalemic. replace her potassium orally and repeat her BMP in the morning (8) DVT prophylaxis: Status: Acute Assessment and plan: enoxaparin SC plan to discharge to home tomorrow. discussed with Dr Deng. Subjective Subjective Patient reports: no new complaints, still having pain, tolerating liquids well and tolerating a regular diet; denies shortness of breath or afebrile Exam Const General: cooperative and no acute distress [facility] Head: normal to inspection Eyes Pupils: PERRL Resp Effort & Inspection: normal respiratory effort Auscultation: clear to auscultation bilaterally Cardio Rate: regular rate Rhythm: regular rhythm GI Inspection: normal to inspection Neuro General: patient alert and patient oriented x3 Objective Last Vital Signs Temp 36.5 C 07/27/21 07:02 Pulse 74 07/27/21 07:02 Resp 18 07/27/21 07:02 BP 145/81 H 07/27/21 07:02 Pulse Ox 97 07/27/21 07:02 Laboratory Results - last 24 hr 07/26/21 07/26/21 07/26/21 15:07 15:07 15:07 WBC 13.76 H RBC 4.36 Hgb 14.5 Hct 43.0 MCV 98.6 H MCH 33.3 H MCHC 33.7 RDW 14.4 Plt Count 326 MPV 8.9 Immature Gran % 0.5 Neutrophils % 80.3 Lymphocytes % 11.0 Monocytes % 8.0 Eosinophils % 0.1 Basophils % 0.1 Nucleated RBC % 0 Absolute Neutrophils 11.05 H Absolute Lymphocytes 1.51 Absolute Monocytes 1.10 H Absolute Eosinophils 0.01 Absolute Basophils 0.01 Sodium 137 Potassium 2.9 L Chloride 96 L Carbon Dioxide 30.3 Anion Gap 10.7 BUN 16 Creatinine 0.9 Estimated GFR/1.73 m2 >= 60.00 Glucose 95 Calcium 9.1 Magnesium Total Bilirubin 1.1 H AST 19 ALT 21 Alkaline Phosphatase 105 Total Protein 8.1 Albumin 4.0 Lipase 146 Urine Color Urine Clarity Urine pH Ur Specific [place] Urine Protein Urine Ketones Urine Blood Urine Nitrite Urine Bilirubin Urine Urobilinogen Ur Leukocyte Esterase Urine RBC Urine WBC Ur Epithelial Cells Urine Crystals Urine Bacteria Urine Mucus Ur Culture Indicated? Urine Glucose COVID-19 Source SARS-CoV-2 (PCR) Patient ABO/Rh O Positive Antibody Screen NEGATIVE 07/26/21 07/26/21 07/26/21 15:07 15:20 17:57 WBC RBC Hgb Hct MCV MCH MCHC RDW Plt Count MPV Immature Gran % Neutrophils % Lymphocytes % Monocytes % Eosinophils % Basophils % Nucleated RBC % Absolute Neutrophils Absolute Lymphocytes Absolute Monocytes Absolute Eosinophils Absolute Basophils Sodium Potassium Chloride Carbon Dioxide Anion Gap BUN Creatinine Estimated GFR/1.73 m2 Glucose Calcium Magnesium 1.9 Total Bilirubin AST ALT Alkaline Phosphatase Total Protein Albumin Lipase Urine Color Yellow Urine Clarity Clear Urine pH 5.5 Ur Specific [place] >= 1.030 H Urine Protein Negative Urine Ketones Negative Urine Blood Trace-intact H Urine Nitrite Negative Urine Bilirubin Negative Urine Urobilinogen 0.2 Ur Leukocyte Esterase Negative Urine RBC 0-2 Urine WBC 5-10 Ur Epithelial Cells Negative Urine Crystals Moderate Amorphous Urine Bacteria Rare Urine Mucus Moderate Ur Culture Indicated? Yes Urine Glucose Negative COVID-19 Source Cancelled SARS-CoV-2 (PCR) Cancelled Patient ABO/Rh Antibody Screen 07/27/21 07/27/21 07:45 07:45 WBC 9.18 D RBC 4.26 Hgb 14.2 Hct 43.0 MCV 100.9 H MCH 33.3 H MCHC 33.0 RDW 14.6 Plt Count 349 MPV 8.9 Immature Gran % Neutrophils % Lymphocytes % Monocytes % Eosinophils % Basophils % Nucleated RBC % Absolute Neutrophils Absolute Lymphocytes Absolute Monocytes Absolute Eosinophils Absolute Basophils Sodium 135 L Potassium 4.7 D Chloride 100 Carbon Dioxide 25.2 Anion Gap 9.8 BUN 23 H Creatinine 1.1 H Estimated GFR/1.73 m2 48.16 Glucose 101 Calcium 9.0 Magnesium Total Bilirubin AST ALT Alkaline Phosphatase Total Protein Albumin Lipase Urine Color Urine Clarity Urine pH Ur Specific [place] Urine Protein Urine Ketones Urine Blood Urine Nitrite Urine Bilirubin Urine Urobilinogen Ur Leukocyte Esterase Urine RBC Urine WBC Ur Epithelial Cells Urine Crystals Urine Bacteria Urine Mucus Ur Culture Indicated? Urine Glucose COVID-19 Source SARS-CoV-2 (PCR) Patient ABO/Rh Antibody Screen
[2021-07-27] MEDS: Ondansetron O.D.T. 4 MG TABEF PO (14:10)
[2021-07-27 16:10] VITALS: BP 115/71; PULSE 69; RESP 16; TEMP 36.7; O2SAT 98
[2021-07-27] MEDS: Atorvastatin 40 MG TAB 80 MG PO (19:12)
[2021-07-27] MEDS: traZODone 50 MG TAB PO (21:17)
[2021-07-27 23:45] VITALS: BP 115/71; PULSE 66; RESP 18; TEMP 36.2; O2SAT 98
[2021-07-28] MEDS: Ibuprofen 600 MG TAB PO (01:08)
[2021-07-28] MEDS: Levothyroxine 88 MCG TAB PO (06:34)
[2021-07-28 07:30] VITALS: BP 144/82; PULSE 66; RESP 19; TEMP 36.5; O2SAT 100
[2021-07-28] MEDS: Polyethylene Glycol 3350 17 GM PACKET PO (08:33)
[2021-07-28] MEDS: Pantoprazole 40 MG TABCR PO (08:35)
[2021-07-28] MEDS: Methocarbamol 750 MG TAB PO ×2 (08:35→12:00)
[2021-07-28] MEDS: Acetaminophen 500 MG TAB 1000 MG PO (08:35)
[2021-07-28] MEDS: Omega-3 Fatty Acids 1000 MG CAP PO (08:35)
[2021-07-28] MEDS: Docusate Sodium 100 MG CAP PO (08:35)
[2021-07-28] MEDS: predniSONE 20 MG TAB 40 MG PO (08:36)
[2021-07-28] MEDS: Enoxaparin 40 MG/0.4 ML SYR SC (08:37)
[2021-07-28] MEDS: Losartan 25 MG TAB PO (08:37)
[2021-07-28] MEDS: FLUoxetine 20 MG CAP PO (08:37)
[2021-07-28] MEDS: Calcium 600mg/Vit D 200U TAB 1 TAB PO (08:37)
[2021-07-28] MEDS: Milk of Magnesia 30 ML CUP PO (08:38)
[2021-07-28] MEDS: Lidocaine 5% Patch 2 PATCH TP (08:44)
--- NOTE | 2021-07-28 10:44 | PTTR_ITS ---
PT Notes Visit Reasons: Low Back Pain, Ambulatory Dysfunction, Falls Inpatient Physical Therapy Treatment Note [facility] Date: 07/28/21 OBJECTIVE: Supine-sit: CGA Sit-supine: CGA Sit-stand: CGA Stand-sit: CGA GAIT Assistive Device: FWW Weight bearing: Full Assist: SBA Distance: 100ft THEREX: Pt completed flexion based stretching and early core stabilization ther ex as per flow sheet. ASSESSMENT: Pt tolerated today's session fairly well. Pt has the most diffic ulty getting in and out of bed. PLAN: Cont as per PT POC. TREATMENT CODE/TIME: 9:15-9:35 (20) TA
--- NOTE | 2021-07-28 12:08 | DSE_ITS ---
Date of service: 07/28/21 Time of Service: 12:08 DS: Diagnosis Discharge Diagnosis (1) Acute low back pain: Status: Acute (2) Ambulatory dysfunction: Status: Acute (3) Lumbar compression fracture: Status: Acute (4) Hypothyroidism, unspecified: Status: Chronic (5) Depressive disorder: Status: Chronic (6) DEEP (obstructive sleep apnea): Status: Chronic (7) Unspecified essential hypertension: Status: Chronic Discharge Plan Disposition Patient Disposition: HOME W/HOME HEALTH SERVICE Condition: Improving Discharge Details Reason For Visit: Low Back Pain, Ambulatory Dysfunction, Falls Admit Date/Time: 07/26/21 18:08 Admit Provider: David Srivastava Attending Provider: David Srivastava Primary Care Provider: Mei Herrera Hospital Course Hospital Course: This is a 76-year-old female who lives alone who had a mechanical fall? on Thursday July 22, 2021 was evaluated through the emergency department.? She had a CT scan of the lumbar spine that showed an old deformity of the L3 with evidence of previous kyphoplasty/vertebroplasty with no acute lumbar fractures detected.? CT of the head showed cerebral atrophy and microvascular ischemic changes but no acute intracranial process.? She was given oxycodone and Motrin and IV fluids routine labs were ordered.? Patient was able to ambulate and her pain was much better she was discharged home with prescription for tapering dose of prednisone.? She now presents emergency department this afternoon due to progressive low back pain and difficulty performing her ADLs and difficulty ambulating.? She does have a history of chronic urinary incontinence but no bowel incontinence and no saddle block anesthesia and no paresthesias in her legs.? She has had no exertional dyspnea or chest tightness.? She has had no syncope.? She was reevaluated in the emergency department underwent repeat CT scan of the abdomen pelvis with reconstruction of the thoracic spine.? Abdomen and pelvis CT scan showed bilateral renal cysts no hydronephrosis no kidney stones and no renal masses.? Abdominal aorta was not enlarged.? She had no asc ites and no evidence of mesenteric or bowel wall hematoma.? Liver and gallbladder and pancreas and spleen were all unremarkable.? Pelvic ultrasound also was unremarkable except there was height loss of L3 vertebral body superior endplate with cement at that level.? No acute fracture lines were seen elsewhere in the lumbar vertebral bodies.? Thoracic spine show no evidence of acute compression fracture or listhesis.? There is some slight loss of height of L1 which was felt not to be acute. Patient was treated in the emergency department with Tylenol and oxycodone and subsequently fentanyl.? Her labs on admission showed a mild leukocytosis of 13,000 no anemia.? She has a macrocytic changes.? Chemistry profile showed a low potassium of 2.9 with normal BUN and creatinine and normal LFTs and normal lipase, normal magnesium..? Patient was given supplemental potassium 40 mEq in the emergency department.? Patient was admitted for treatment of decreased ADL performance, acute lower back pain.? She will need an MRI scan next week to evaluate for possible new lumbar compression fracture of L1.? She was admitted for physical therapy analgesics anti-inflammatory and muscle relaxers and a short course of prednisone.? She was seen by physical therapy and safely re-ambulated with a walker. She will be referred to home health services. discussed with Dr Deng Home Meds and New Rx's Prescriptions: New prednisone 20 mg Tablet 40 mg PO DAILY Qty: 8 0RF lidocaine 5 % Adhesive Patch,Medicated 2 patch topical Q24H Qty: 10 0RF No Action calcium carbonate-vitamin D3 600 mg(1,500mg) -500 unit capsule 600 cap PO DAILY 0RF hydrochlorothiazide 12.5 mg capsule 12.5 mg PO DAILY Qty: 90 3RF levothyroxine 88 mcg tablet 88 mcg PO DAILY Qty: 90 3RF Rx Instructions: Administer in the morning on an empty stomach, at least 30-60 minutes before food losartan 25 mg tablet 25 mg PO DAILY Qty: 90 3RF mometasone [Nasonex] 50 mcg/actuation spray,non-aerosol 1 - 2 spray NS DAILY PRN (Reason: nasal congestion) Qty: 3 3RF methocarbamol 500 mg tablet 500 mg PO Q6H PRN (Reason: muscle spasm) Qty: 30 0RF Rx Instructions: Continue x 1 week for mm spasm relief ibuprofen 600 mg tablet 600 mg PO TID PRN (Reason: pain) Qty: 30 0RF Rx Instructions: Trial for inflamm pain aspirin [Aspir-81] 81 MG tablet,delayed release (DR/EC) 81 mg PO DAILY 0RF omega-3 fatty acids-fish oil 1 EACH capsule 1 ea PO DAILY 0RF vitamin A 8,000 UNIT capsule 8,000 units PO DAILY 0RF fluoxetine 20 mg capsule 20 mg PO DAILY Qty: 90 3RF atorvastatin 80 mg tablet 80 mg PO DAILY Qty: 90 3RF omeprazole 20 mg capsule,delayed release(DR/EC) 20 mg PO DAILY Qty: 90 3RF Label Comments: Pt takes every other day. Rx Instructions: Take 20 mg once daily in the morning on an empty stomach at least 30 minutes before first meal trazodone 50 mg tablet 50 mg PO HS Qty: 90 3RF acetaminophen [Tylenol Extra Strength] 500 mg Tablet 500 mg PO Q4H PRN0RF naproxen sodium [Aleve] 220 mg Capsule 220 mg PO Q12H PRN0RF prednisone 20 mg tablet See Rx Instructions .ROUTE .COMPLEX Qty: 12 0RF Rx Instructions: Take 3 tabs daily for 2 days, then 2 tabs daily for 2 days, then 1 tab daily for 2 days Discharge Instructions Instructions: Acute Low Back Pain (ED) Stand Alone Forms: Nursing Discharge Form Referrals: Mei Herrera NP [Primary Care Provider] - (Please call to follow up in 1-2 weeks) Activity:: Activity as Tolerated Equipment/Supplies:: Walker Diet:: As Tolerated Discharge Orders Discharge Orders: Discharge Order (Routine); Ordered 07/28/21 Ordered By: Brianna Henry Discharge Data Discharge Date/Time-TO BE ENTERED AT DEPARTURE: 07/28/21 13:37 DS: Summary Time Spent with Patient providing and/or coordinating discharge services: Greater than 30 minutes Status at Discharge Functional status at discharge: uses cane/walker Overall status at discharge: patient is progressing back to baseline Mental Status: mental status grossly normal Speech and Movement: speech and movement normal Mood: congruent mood Affect: normal affect Exam Const General: cooperative and no acute distress HENMT Head: normal to inspection Eyes Pupils: PERRL Resp Effort & Inspection: normal respiratory effort Auscultation: clear to auscultation bilaterally Cardio Rate: regular rate Rhythm: regular rhythm GI Inspection: normal to inspection Neuro General: patient alert and patient oriented x3 Psych Mental Status: mental status grossly normal Speech and Movement: speech and movement normal Mood: congruent mood Affect: normal affect DS: Data Vitals/I&O Vitals and I&O: Vital Signs Temperature 36.5 C 07/28/21 07:30 Temperature Source Tympanic 07/28/21 07:30 Pulse 66 07/28/21 07:30 Pulse Rhythm Regular 07/28/21 07:35 Respiratory Rate 19 07/28/21 07:30 Respiratory Effort 07/28/21 07:35 Respiratory Depth Normal 07/28/21 07:35 Respiratory Pattern Normal 07/28/21 07:35 Blood Pressure 144/82 H 07/28/21 07:30 Blood Pressure Mean 113 07/26/21 17:49 Blood Pressure Position Supine 07/26/21 13:27 Pulse Oximetry 100 07/28/21 07:30 Oxygen Delivery Method Room Air 07/28/21 07:30 Oxygen Flow Rate 0 07/28/21 07:30 Pain Level 5 07/28/21 08:35 Comment 07/26/21 19:17 Intake & Output 07/27/21 07/28/21 07/28/21 23:59 11:59 23:59 Intake Total 360 / 720 180 / 180 Output Total 100 / 250 750 / 750 Balance 260 / 470 -570 / -570 Intake: Oral 360 / 720 180 / 180 Output: Urine 100 / 250 750 / 750 Other: Urine Color Straw Yellow Urine Appearance Clear Clear Urine Odor Normal Comment pT was mildly incont and voided 100 in commode pT was mildly incont and voided 200ml in toilet Voiding Methods Bedside Commode Toilet Diaper Incontinent Data Completed and Pending Labs on day of discharge: Preliminary micro results at discharge 07/26/21 15:20 Urine Culture - Preliminary Urine - Reflex from Ua Staphylococcus Aureus Gram Positive Carlotta PFSH All Active Problems (Updated 07/26/21 @ 23:37 by Nicanor Kennedy NP) Acute low back pain due to trauma (Acute) DVT prophylaxis (Acute) Lumbar compression fracture (Acute) Ambulatory dysfunction (Acute) Acute low back pain (Acute) Hx of compression fracture of spine (Acute) Back pain with history of spinal surgery (Acute) Fall at home (Acute) Contusion of lower back (Acute) DEEP (obstructive sleep apnea) (Chronic ~06/2021) Sleep study 06/23/21 severe Restless legs (Chronic) 06/06/21 sleep note Snoring (Acute) 06/06/21 Sleep note Urinary incontinence, urge (Chronic) Chronic kidney disease (CKD), stage III (moderate) (Chronic) 10/2014: renal US neg, cysts; 05/2018 renal US: B/L renal cysts Unspecified essential hypertension (Chronic 08/04/11) FRS 6% Peripheral vascular disease (Chronic 08/04/11) Osteoporosis (Chronic 08/13/12) T -2.8 DEXA 2003; [place] [facility] [place] Hypothyroidism, unspecified (Chronic 08/13/12) Hyperlipidemia (Chronic 08/19/13) On high intensity statin therapy Generalized osteoarthrosis, unspecified site (Chronic 08/04/11) Depressive disorder (Chronic 08/04/11) Allergic rhinitis, unspecified (Chronic 08/13/12) Medical History (Updated 07/26/21 @ 23:37 by Nicanor Kennedy NP) Cecal polyp Colon polyps Compression fracture of lumbar vertebra (~2017) L3; s/p vertebral augmentation ([facility] [place]) Hot flashes (02/09/15) H/o gabapentin Rx; titrated off 2018 & no recurrence Malignant neoplasm of breast (female), unspecified site (08/04/11) Dr Elvis foley [facility] [place] L mastectomy 11/24/2000 chem Rx, 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 reports tummy tuck at same time to make breast History of back surgery History of bilateral cataract extraction Hx of repair of rotator cuff Right Tonsillectomy (~1967) Family History Brother Diabetes Heart disease S/p bypass surgery Brother No problems noted. Social History Smoking/Tobacco Use Status: Former Tobacco Use Quit Date: 06/01/79 Smoking risk assessment performed?: Yes Alcohol Intake: current Alcohol Intake frequency: 0-2 drinks per day Alcohol type: hard liquor Drug use: Never Substance use type: does not use Details: alcohol: t-1, one drink Caregiver/Support person: No Communication Needs: None Pets and animals: Yes Pets and animals: cat(s) Current gender identity: female What type of physical activity do you participate in: other Details: stretches Frequency: daily Seatbelt use: always Water heater temp set <120 deg: Yes Working smoke detector in home: Yes Fire extinguisher in home: Yes Carbon monox detector in home: Yes Do you feel safe at home: Yes
--- NOTE | 2021-07-28 12:23 | PDOC.HHF2F ---
Home Health Certification Home Health Certification: 1. Encounter Date and Reason I certify that Kourtney Aguilar was seen by Brianna Henry on 07/28/21 and that I had a [id number] encounter with this patient that meets the physician face to face encounter requirements. 2. Clinical Findings Supporting Skilled Need and Homebound Status I certify that home health services are medically necessary, include either intermittent group home and/or physical/speech therapy, and that this patient is homebound in that absences from the home require considerable and taxing effort and are infrequent or of short duration, or are attributable to the need to receive medical care. [X] (a) Attached documentation from encounter provides clinical findings supporting skilled need and homebound status (including what assistance patient requires to leave the home). The encounter with the patient was in whole, or in part, for the following medical condition, which is the primary reason for home health care: Low Back Pain, Ambulatory Dysfunction, Falls Residential: routine nursing evaluation and medication oversight. Physical and Occupational Therapy: routine evaluation and management Homebound: patient unable to safely leave the house unattended d/t decreased strength and endurance 3. Certification and Authentication I certify that I composed the above information based on my clinical judgement relating to this patient's medical condition and, if applicable, clinical findings communicated to me by the NPP or inpatient physician who performed the Home Health Referral. All further orders will be obtained through _Mei Herrera __(Community Based Physician - PCP)
--- NOTE | 2021-07-28 15:07 | CMDISCH_ITS ---
- If Service Date Differs Date of service: 07/28/21 Time of Service: 15:07 LACE Index Scoring Tool - Questions: Length of Stay (in days): 2 Acuity (Admit via E.D.?): Yes Comorbidities: PVD, Any Tumor, Liver or Renal Disease E.D. Visits: 2 - Answers: Total Score: 12 Risk of Readmission: High Risk Care Management Discharge Reason for Hospitalization: acute low back pain Discharge Plan: Jordan will be discharged home new home health services for nursing, PLODDING OPERATOR, OT and PT. She will follow up with her community providers and plan of care and transport via private vehicle with her nephew. Patient/Family Education Needs: Review of discharge instructions, follow up plan, limitations, medications, activity, discuss Ask Me Three Services Needed at Discharge: Home Health Care Services
--- NOTE | 2021-07-29 18:30 | INDS_ITS ---
Date of service: 07/29/21 PT Notes Visit Reasons: Low Back Pain, Ambulatory Dysfunction, Falls Physical Therapy Inpatient Discharge Summary Date: 07/29/2021 Dates of Service: 07/27/2021 through 07/28/2021 This is a clinical summary of care provided for the duration of dates listed abo ve. No charge was made in the completion of this documentation. Referring Doctor: David Clark MD PT Orders: PT CONSULT: Fall safety assessment.? Evaluate and treat back pain and gait instability Precautions: Fall. Standard. Activity as tolerated.? Back precautions on. Patient Profile/Admitting Diagnosis: Elaine is a 76-year-old female with past medical history significant for hypothyroidism, depression, and DEEP now diagnosed with acute low back pain, ambulatory dysfunction, and lumbar region fracture. PMHX: All Active Problems?(Updated 07/26/21 @ 20:35 by David Srivastava) DVT prophylaxis (Acute) Lumbar compression fracture (Acute) Ambulatory dysfunction (Acute) Acute low back pain (Acute) Hx of compression fracture of spine (Acute) Back pain with history of spinal surgery (Acute) Fall at home (Acute) Contusion of lower back (Acute) DEEP (obstructive sleep apnea) (Chronic ~06/2021) Sleep study 06/23/21 Severe Restless legs (Chronic) 06/06/21 sleep noteSnoring (Acute) 06/06/21 Sleep noteUrinary incontinence, urge (Chronic) Chronic kidney disease (CKD), stage III (moderate) (Chronic) 10/2014: renal US neg, cysts; 05/2018 renal US: B/L renal cystsUnspecified essential hypertension (Chronic 08/04/11) FRS 6% Peripheral vascular disease (Chronic 08/04/11) Osteoporosis (Chronic 08/13/12) T -2.8 DEXA 2003; [place] [facility] [place] Hypothyroidism, unspecified (Chronic 08/13/12) Hyperlipidemia (Chronic 08/19/13) On high intensity statin therapy Generalized osteoarthrosis, unspecified site (Chronic 08/04/11) Depressive disorder (Chronic 08/04/11) Allergic rhinitis, unspecified (Chronic 08/13/12) Medical History?(Updated 07/26/21 @ 20:35 by David Srivastava) Cecal polyp Colon polyps Compression fracture of lumbar vertebra (~2017) L3; s/p vertebral augmentation ([facility] [place])Hot flashes (02/09/15) H/o gabapentin Rx; titrated off 2019 & no recurrence Malignant neoplasm of breast (female), unspecified site (08/04/11) Dr Elvis foley [facility] [place] mastectomy 11/24/2000 chem Rx, tamoxifen then 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 LEFT Senile cataract, unspecified (08/04/11) Tubular adenoma of colon (03/06/17) Surgical History?(Updated 07/26/21 @ 20:18 by David Sirvastava) Abdominal hysterectomy Breast, Mastectomy (~1999) left breast, pt. reports nadiya zamarripa at same time to make breast History of back surgery History of bilateral cataract extraction Hx of repair of rotator cuff Right Tonsillectomy (~1967) Social History/Home Situation: Independent with all mobility ADLs with use of small-based quad cane.? Lives alone in a private home with a stair lift to enter the house and another stair lift to the second floor of the house where her bedroom is.? [facility].? Retired registered physical therapist. Equipment Owned/DME: Stair lift, SBQC, FWW Subjective: NT. See most recent SEWAGE DISPOSAL WORKER notes. Objective: General Observation: NT. See most recent SEWAGE DISPOSAL WORKER notes. Mental Status: NT. See most recent SEWAGE DISPOSAL WORKER notes. Pain: NT. See most recent SEWAGE DISPOSAL WORKER notes. ROM: Right Upper Extremity: ? Shoulder Flexion WFL. Shoulder abduction WFL. Elbow flexion WFL. Wrist flexion WFL. Functional opening and closing of hand WFL. Left Upper Extremity:? Shoulder Flexion WFL. Shoulder abduction WFL. Elbow flexion WFL. Wrist flexion WFL. Functional opening and closing of hand WFL. Right Lower Extremity: Hip flexion WFL. Hip abduction WFL. Knee flexion WFL. Ankle dorsiflexion WFL. Ankle plantarflexion WFL. Left Lower Extremity: Hip flexion WFL. Hip abduction WFL. Knee flexion WFL. Ankle dorsiflexion WFL. Ankle plantarflexion WFL. Strength: Right Upper Extremity: Shoulder flexors 5/5. Shoulder abductors 5/5. Elbow flexors 5/5. Elbow extensors 5/5. Assistant Professor Of Art strong. Left Upper Extremity: Shoulder flexors 5/5. Shoulder abductors 5/5. Elbow flexors 5/5. Elbow extensors 5/5. Assistant Professor Of Art strong. Right Lower Extremity: Hip flexors 4-/5. Hip abductors 4-/5. Knee flexors 4-/5. Knee extensors 4-/5. Ankle dorsiflexors 5/5. Ankle plantarflexors 5/5. Left Lower Extremity: Hip flexors 4-/5. Hip abductors 4-/5. Knee flexors 4-/5. Knee extensors 4-/5. Ankle dorsiflexors 5/5. Ankle plantarflexors 5/5. Bed Mobility/Transfers: Rolling independent Supine to sit independent Sit to supine stand by assist Sit to stand with stand by assist Stand to sit with standby assist Bed to reclining chair stand by assist Gait: Instructed patient with level surface ambulation of up to 100 feet requiring standby assist with front wheeled walker. Mimi decreased.? Step height decreased. Step length decreased.? Pain level of 6/10 pain in the back requiring seated rest. Balance: Static Sitting: Normal Dynamic Sitting: Good Static Standing: Fair Dynamic Standing: Fair Assessment: No evidence of acute fracture per most recent lumbar spine CT.? No numbness in B LE reported.? No range of motion deficits although movements needed to be done slowly as her back muscles have been in guarding mode.? Jordan is agreeable to using front-wheeled walker to temporarily offload the back during weight bearing activities to reduce pain level.? May continue to benefit from back rehabilitation as an out patient.? May be able to manage well at home if pain level is controlled is more controlled. Patient presents with clinical signs and symptoms consistent with current/admitting diagnoses that have resulted to mobility limitations, gait instability, generalized weakness, and overall ADL decline as demonstrated by the following impairment level findings: 1.? Pain in low back area due to muscle guarding 2.? Impaired sitting/standing balance 3.? Impaired activity tolerance 4.? Limitation of joint range of motion in low back Impairments are contributing to the following functional limitations: 1.? Decline in bed mobility skills 2.? Decline in transfer skills 3.? Difficulty with ambulation without FWW 4.? Increased completion time for mobility ADL performance 5.? Increased risk for falls 6.? Difficulty with managing steps alone safely Goals: Goals X1 week 1. Supine-Sit independent NOT MET 2. Sit-Supine independent NOT MET 3. Sit-Stand independent NOT MET 4. Stand-Sit independent with FWW NOT MET 5. Bed-Chair independent with FWW NOT MET 6. Chair-Bed independent with FWW NOT MET 7. Independent gait on level surface with use of FWW for at least 100 feet without report of pain nor dyspnea NOT MET 8. Good static and dynamic standing balance/tolerance NOT MET DISCHARGE RECOMMENDATIONS: [] ? Home with no services [] [] ? Home with services [specify] [X] ? Home with outpatient PT.? Home when medically cleared by hospitalist.? Will benefit from outpatient back rehabilitation efforts in order to facilitate return to baseline mobility level and increase ability of patient to thrive at home. [] ? SNF for continued rehabilitation [] [] ? [facility] [] [] ? SNF versus LTC based on ability to participate and progress [] TREATMENT CODE/TIME: NISREEN Thank you for the opportunity to participate in the care of this patient. Yancy Wyman PT, DPT, CLT [facility] [place], [place]
== END 2021-07-28 13:37 | disposition home health service (06) ==
LOC: ER 18:25 → MS 19:02
PROVIDERS: Physician Assistant; Admitting Provider Internal Medicine; Emergency Provider Nurse Practitioner Family; PCP Nurse Practitioner Family; Visit Provider Internal Medicine
DX: S30.0XXA Contusion of lower back and pelvis, initial encounter (principal); G89.11 Acute pain due to trauma; M54.50 Low back pain, unspecified; W19.XXXA Unspecified fall, initial encounter; R53.1 Weakness; R26.2 Difficulty in walking, not elsewhere classified; R32 Unspecified urinary incontinence; G47.33 Obstructive sleep apnea (adult) (pediatric); N18.30 Chronic kidney disease, stage 3 unspecified; I12.9 Hypertensive chronic kidney disease with stage 1 through stage 4 chronic kidney disease, or unspecified chronic kidney disease; I73.9 Peripheral vascular disease, unspecified; M81.0 Age-related osteoporosis without current pathological fracture; E03.9 Hypothyroidism, unspecified; E78.5 Hyperlipidemia, unspecified; M15.9 Polyosteoarthritis, unspecified; F32.9 Major depressive disorder, single episode, unspecified; J30.9 Allergic rhinitis, unspecified; Z85.3 Personal history of malignant neoplasm of breast
CPT/HCPCS: 80048; 80053; 83690; 85027; 86850; 86900; 86901; 87077; 87635; 93005; 96374; 96375; 97162; 97530; 99285; J1650; 72128; 74177; 81003; 81015; 83735; 85025; 87086; 87186; 93010; 99217; 99219; 99226; G0378; J1885; J2405; J3010; J3490; J7512

== ENCOUNTER 2021-08-28 03:19 | Outpatient (CLI) | payer MEDICARE, BC, OTHER, SELFPAY ==
[2021-08-28 14:06] LABS: Abs Immature Grans 0.02 10^3/uL (0.0-0.06); Absolute Basophil Count 0.02 10^3/uL (0.0-0.2); Absolute Eosinophil Count 0.05 10^3/uL (0.0-0.7); Absolute Lymphocyte Count 2.33 10^3/uL (1.2-3.4); Absolute Monocyte Count 0.58 10^3/uL (0.1-0.8); Basophils % 0.3; Eosinophils % 0.7; HCT 45.3 % (36.0-46.0); HGB 14.8 g/dL (11.2-15.7); Immature Grans % 0.3; Lymphocytes % 33.8; MCH 32.7 pg (27.0-33.0); MCHC 32.7 % (32.0-36.0); MCV 100.2 fL (80-95); MPV 9.7 fL (8.0-11.0); Monocytes % 8.4; Neutrophils % 56.5; Nucleated RBC 0 %; Platelet Count 418 10^3/uL (130-400); RBC 4.52 10^6/uL (3.93-5.22); RDW 12.2 % (11.7-14.6); RDW-SD 45.6 fL
[2021-08-28 15:23] LABS: ALT 27 U/L (14-59); AST 21 U/L (15-37); Albumin 4.3 g/dL (3.4-5.0); Alkaline Phosphatase 168 U/L (46-116); BUN 18 mg/dL (7-18); Bilirubin, Total 0.5 mg/dL (0.2-1.0); CREATININE 1.3 mg/dL (0.55-1.02); Calcium 9.9 mg/dL (8.5-10.1); Chloride 96 mmol/L (98-107); Estimated GFR 39.72 (mL/min/1.73m2); Glucose 90 mg/dL (74-106); Potassium 3.4 mmol/L (3.5-5.1); Sodium 135 mmol/L (136-145); TSH (W/Ref FT4) 3.46 uIU/mL (0.36-3.74); Total Protein 7.7 g/dL (6.4-8.2)
[2021-08-29 14:53] LABS: Calculated LDL 76 mg/dL (<100); Cholesterol 157 mg/dL (<200); HDL Cholesterol 48 mg/dL (40-60); Triglyceride 166 mg/dL (<150)
== END 2021-08-28 03:20 | disposition home or self-care (01) ==
LOC: LBO 03:19
PROVIDERS: PCP Nurse Practitioner Family; Visit Provider Nurse Practitioner Family
DX: I10 Essential (primary) hypertension (principal); N18.30 Chronic kidney disease, stage 3 unspecified; E03.9 Hypothyroidism, unspecified; Z51.81 Encounter for therapeutic drug level monitoring; E78.5 Hyperlipidemia, unspecified
CPT/HCPCS: 36415; 80053; 80061; 84443; 85025

== ENCOUNTER 2021-10-11 01:53 | Outpatient (CLI) | payer MEDICARE, BC, OTHER, SELFPAY ==
[2021-10-11 10:25] LABS: Abs Immature Grans 0.01 10^3/uL (0.0-0.06); Absolute Basophil Count 0.02 10^3/uL (0.0-0.2); Absolute Eosinophil Count 0.07 10^3/uL (0.0-0.7); Absolute Lymphocyte Count 1.86 10^3/uL (1.2-3.4); Absolute Monocyte Count 0.48 10^3/uL (0.1-0.8); Absolute Neutrophil Count 3.05 10^3/uL (1.2-6.7); Basophils % 0.4; Eosinophils % 1.3; HGB 12.5 g/dL (11.2-15.7); Immature Grans % 0.2; Lymphocytes % 33.9; MCH 32.1 pg (27.0-33.0); MCHC 32.9 % (32.0-36.0); MCV 98 fL (80-95); MPV 9.3 fL (8.0-11.0); Monocytes % 8.7; Neutrophils % 55.5; Platelet Count 314 10^3/uL (130-400); RBC 3.89 10^6/uL (3.93-5.22); RDW 12.6 % (11.7-14.6); RDW-SD 45.4 fL; WBC 5.49 10^3/uL (4.4-10.8)
[2021-10-11 11:29] LABS: Anion Gap 8.9 mmol/L (3-11); BUN 13 mg/dL (7-18); CO2 31.1 mmol/L (21.0-32.0); CREATININE 0.9 mg/dL (0.55-1.02); Calcium 8.8 mg/dL (8.5-10.1); Chloride 103 mmol/L (98-107); Glucose 96 mg/dL (74-106); Potassium 3.5 mmol/L (3.5-5.1); Sodium 143 mmol/L (136-145); Vitamin B12 199 pg/mL (193-986)
[2021-10-14 06:09] LABS: Vitamin D 25 Total 68.6 ng/mL (30-100)
== END 2021-10-11 01:54 | disposition home or self-care (01) ==
LOC: LBO 02:01
PROVIDERS: PCP Nurse Practitioner Family; Visit Provider Nurse Practitioner Family
DX: E55.9 Vitamin D deficiency, unspecified (principal); E87.1 Hypo-osmolality and hyponatremia; E87.6 Hypokalemia; N18.30 Chronic kidney disease, stage 3 unspecified; D75.89 Other specified diseases of blood and blood-forming organs; Z79.899 Other long term (current) drug therapy
CPT/HCPCS: 36415; 80048; 82306; 82607; 82746; 85025

== ENCOUNTER 2022-03-07 01:49 | Outpatient (CLI) | payer MEDICARE, BC, OTHER, SELFPAY ==
[2022-03-07 12:00] LABS: Abs Immature Grans 0.01 10^3/uL (0.0-0.06); Absolute Basophil Count 0.01 10^3/uL (0.0-0.2); Absolute Eosinophil Count 0.13 10^3/uL (0.0-0.7); Absolute Lymphocyte Count 1.74 10^3/uL (1.2-3.4); Absolute Neutrophil Count 2.64 10^3/uL (1.2-6.7); Basophils % 0.2; Eosinophils % 2.6; HCT 39.1 % (36.0-46.0); HGB 12.6 g/dL (11.2-15.7); Immature Grans % 0.2; Lymphocytes % 35.3; MCH 28.5 pg (27.0-33.0); MCHC 32.2 % (32.0-36.0); MCV 89 fL (80-95); Monocytes % 8.1; Neutrophils % 53.6; Platelet Count 360 10^3/uL (130-400); RBC 4.42 10^6/uL (3.93-5.22); RDW 11.8 % (11.7-14.6); RDW-SD 37.6 fL; WBC 4.93 10^3/uL (4.4-10.8)
[2022-03-07 13:02] LABS: Folate 12.5 ng/mL (8.6-20.0); Vitamin B12 337 pg/mL (193-986)
== END 2022-03-07 01:50 | disposition home or self-care (01) ==
LOC: LBO 01:49
PROVIDERS: PCP Nurse Practitioner Family; Visit Provider Nurse Practitioner Family
DX: D75.89 Other specified diseases of blood and blood-forming organs (principal); E53.8 Deficiency of other specified B group vitamins
CPT/HCPCS: 36415; 82607; 82746; 85025

== ENCOUNTER 2022-06-12 01:38 | Outpatient (CLI) | payer MEDICARE, BC, OTHER, SELFPAY ==
--- NOTE | 2022-06-12 12:45 | DI.DEXA_ITS ---
Exam(s) XR DEXA BONE DENSITY W/WO CAMELIA EXAM: XR DEXA BONE DENSITY W/WO CAMELIA CLINICAL HISTORY: baseline osteoporosis starting tx,m81.0 TECHNIQUE: COMPARISON: Comparison examination is 04/15/2004. FINDINGS: Lateral Spine Image: There are compression fracture deformities of L1 and L3 with vertebroplasty pres ent. Left hip: Total T-Score: -1.6. This compares to -1.5 on the prior examination. Total Z-Score: 0.3 T- and Z-scores: Findings are consistent with osteopenia. Left forearm: Total T-Score: -2.3 Total Z-Score: 0.5 T- and Z-scores: Osteopenia is present. IMPRESSION: There is osteopenia in the left hip and forearm.
== END 2022-06-12 01:58 ==
PROVIDERS: PCP Nurse Practitioner Family; Visit Provider Nurse Practitioner Family
DX: Z13.820 Encounter for screening for osteoporosis (principal); M85.89 Other specified disorders of bone density and structure, multiple sites
CPT/HCPCS: 77080

== ENCOUNTER 2022-09-03 03:05 | Outpatient (CLI) | payer MEDICARE, BC, OTHER, SELFPAY ==
[2022-09-03 13:26] LABS: Abs Immature Grans 0.02 10^3/uL (0.0-0.06); Absolute Basophil Count 0.02 10^3/uL (0.0-0.2); Absolute Eosinophil Count 0.13 10^3/uL (0.0-0.7); Absolute Lymphocyte Count 2.05 10^3/uL (1.2-3.4); Absolute Monocyte Count 0.48 10^3/uL (0.1-0.8); Absolute Neutrophil Count 4.21 10^3/uL (1.2-6.7); Basophils % 0.3; Eosinophils % 1.9; HCT 39.9 % (36.0-46.0); HGB 12.5 g/dL (11.2-15.7); Immature Grans % 0.3; Lymphocytes % 29.7; MCH 26.7 pg (27.0-33.0); MCHC 31.3 % (32.0-36.0); MCV 85 fL (80-95); Monocytes % 6.9; Neutrophils % 60.9; Platelet Count 376 10^3/uL (130-400); RBC 4.68 10^6/uL (3.93-5.22); RDW 13.3 % (11.7-14.6); RDW-SD 41.5 fL; WBC 6.91 10^3/uL (4.4-10.8)
[2022-09-03 14:15] LABS: ALT 29 U/L (14-59); AST 16 U/L (15-37); Alkaline Phosphatase 117 U/L (46-116); Anion Gap 6.9 mmol/L (3-11); BUN 14 mg/dL (7-18); Bilirubin, Total 0.5 mg/dL (0.2-1.0); CO2 32.1 mmol/L (21.0-32.0); CREATININE 1.1 mg/dL (0.55-1.02); Calcium 9.2 mg/dL (8.5-10.1); Calculated LDL 93 mg/dL (<100); Chloride 102 mmol/L (98-107); Cholesterol 187 mg/dL (<200); Estimated GFR 51.43 (mL/min/1.73m2); Glucose 92 mg/dL (74-106); HDL Cholesterol 71 mg/dL (40-60); Potassium 3.6 mmol/L (3.5-5.1); Sodium 141 mmol/L (136-145); TSH (W/Ref FT4) 1.47 uIU/mL (0.36-3.74); Total Protein 7.8 g/dL (6.4-8.2); Triglyceride 119 mg/dL (<150)
== END 2022-09-03 03:06 | disposition home or self-care (01) ==
LOC: LBO 03:06
PROVIDERS: PCP Nurse Practitioner Family; Visit Provider Nurse Practitioner Family
DX: I10 Essential (primary) hypertension (principal); E78.5 Hyperlipidemia, unspecified; E03.9 Hypothyroidism, unspecified; N18.30 Chronic kidney disease, stage 3 unspecified
CPT/HCPCS: 36415; 80053; 80061; 84443; 85025

== ENCOUNTER 2022-10-08 02:12 | Outpatient (CLI) | payer MEDICARE, BC, OTHER, SELFPAY ==
[2022-10-08 15:26] LABS: Anion Gap 9.3 mmol/L (3-11); BUN 14 mg/dL (7-18); CO2 29.7 mmol/L (21.0-32.0); CREATININE 1.1 mg/dL (0.55-1.02); Calcium 9.2 mg/dL (8.5-10.1); Chloride 102 mmol/L (98-107); Estimated GFR 51.43 (mL/min/1.73m2); Glucose 94 mg/dL (74-106); Potassium 3.5 mmol/L (3.5-5.1); Sodium 141 mmol/L (136-145)
== END 2022-10-08 02:13 | disposition home or self-care (01) ==
LOC: LBO 02:12
PROVIDERS: Absent Provider Nurse Practitioner Family; PCP Nurse Practitioner Family; Visit Provider Nurse Practitioner Family
DX: R60.0 Localized edema (principal); I10 Essential (primary) hypertension; E78.5 Hyperlipidemia, unspecified; N18.30 Chronic kidney disease, stage 3 unspecified; E03.9 Hypothyroidism, unspecified
CPT/HCPCS: 36415; 80048

== ENCOUNTER 2023-06-29 16:04 | Outpatient (REF) | payer MEDICARE, BC, OTHER, SELFPAY ==
[2023-06-29 19:20] LABS: C Diff PCR Negative (Negative)
[2023-07-01 10:57] LABS: Campylobacter PCR Negative (Negative); Salmonella PCR Negative (Negative); Shiga Toxin PCR Negative (Negative); Shigella/Enteroinvasive Ecoli Negative (Negative)
[2023-07-02 21:59] LABS: Calprotectin <50.0 mcg/g
== END 2023-06-29 16:05 | disposition home or self-care (01) ==
LOC: LBN 16:04
PROVIDERS: PCP Nurse Practitioner; Visit Provider Nurse Practitioner
DX: R19.7 Diarrhea, unspecified (principal)
CPT/HCPCS: 87493; 87505; 83993; 87177

== ENCOUNTER 2023-07-06 15:46 | Outpatient (REF) | payer MEDICARE, BC, OTHER, SELFPAY ==
[2023-07-06 18:59] LABS: Bilirubin Small (Negative); Blood Negative (Negative); Clarity Clear (Clear); Glucose Negative (Negative); Ketones Trace mg/dL (Negative); Leukocyte Esterase Negative (Negative); Nitrite Negative (Negative); Specific Gravity 1.025 (1.005-1.025); Urobilinogen 0.2 mg/dL (Up to 0.2)
== END 2023-07-06 15:47 | disposition home or self-care (01) ==
LOC: LBN 15:46
PROVIDERS: PCP Nurse Practitioner; Referring Provider Nurse Practitioner; Visit Provider Nurse Practitioner
DX: R82.998 Other abnormal findings in urine (principal)
CPT/HCPCS: 81003

== ENCOUNTER → 2023-10-06 02:30 | Outpatient (CLI) | payer MEDICARE, BC, OTHER, SELFPAY ==
--- NOTE | 2023-10-06 08:01 | DI.CT_ITS ---
Exam(s) CT HEAD WO EXAM: CT HEAD WO CLINICAL HISTORY: H/O left PAREKH, and now RLE weakness,HEAD PAIN,R51.9,R29.898. TECHNIQUE: Imaging Protocol: Axial computed tomography images with coronal and sagittal reformatted images were created and reviewed COMPARISON: CT CT HEAD WO from 07/22/2021 FINDINGS: Ventricles and Extra axial spaces: Normal in size and morphology for the patient's age. Hemorrhage: None. Cerebral parenchyma: There are areas of decreased attenuation in the white matter consistent with chr onic microvascular ischemic disease. No mass effect is identified. No findings to suggest an acute territorial infarct are seen at this time. Midline shift: None. Brainstem/Cerebellum: Normal. Calvarium: Normal. Visualized Paranasal sinuses/Mastoids: Clear. Soft Tissues: Unremarkable. IMPRESSION: No acute intracranial process. RADIATION DOSE DELIVERED: 677.92mGy.cm Total DLP DATA REPOSITORY: All CT scans at this facility are submitted to the National Radiology Data Registry (NRDR) Dose Index Registry (DIR) with the [employer] (ACR). RADIATION OPTIMIZATION: All CT scans at this facility use at least one of these dose optimization te chniques: automated exposure control; mA and/or kV adjustment per patient size (includes targeted exa ms where dose is matched to clinical indication); or iterative reconstruction.
== END ==
PROVIDERS: PCP Nurse Practitioner; Visit Provider Nurse Practitioner
DX: R29.898 Other symptoms and signs involving the musculoskeletal system (principal); R51.9 Headache, unspecified
CPT/HCPCS: 70450

== ENCOUNTER 2023-10-28 05:14 | Outpatient (CLI) | payer MEDICARE, BC, OTHER, SELFPAY ==
[2023-10-28 13:21] LABS: Abs Immature Grans 0.02 10^3/uL (0.0-0.06); Absolute Basophil Count 0.03 10^3/uL (0.0-0.2); Absolute Eosinophil Count 0.08 10^3/uL (0.0-0.7); Absolute Lymphocyte Count 2.75 10^3/uL (1.2-3.4); Absolute Monocyte Count 0.53 10^3/uL (0.1-0.8); Absolute Neutrophil Count 3.43 10^3/uL (1.2-6.7); Basophils % 0.4 %; Eosinophils % 1.2 %; HCT 41.1 % (36.0-46.0); HGB 13.5 g/dL (11.2-15.7); Immature Grans % 0.3 %; Lymphocytes % 40.2 %; MCH 27.3 pg (27.0-33.0); MCHC 32.8 % (32.0-36.0); MCV 83 fL (80-95); MPV 9.7 fL (8.0-11.0); Monocytes % 7.7 %; Neutrophils % 50.2 %; Platelet Count 376 10^3/uL (130-400); RBC 4.94 10^6/uL (3.93-5.22); RDW 13.2 % (11.7-14.6); RDW-SD 40.3 fL; WBC 6.84 10^3/uL (4.4-10.8)
[2023-10-28 13:58] LABS: ALT 26 U/L (14-59); AST 19 U/L (15-37); Alkaline Phosphatase 108 U/L (46-116); Anion Gap 9.7 mmol/L (3-11); BUN 11 mg/dL (7-18); Bilirubin, Total 0.7 mg/dL (0.2-1.0); CO2 33.3 mmol/L (21.0-32.0); CREATININE 0.9 mg/dL (0.55-1.02); Calcium 9.1 mg/dL (8.5-10.1); Calculated LDL 79 mg/dL (<100); Chloride 99 mmol/L (98-107); Cholesterol 175 mg/dL (<200); Estimated GFR 65.03 (mL/min/1.73m2); Glucose 96 mg/dL (74-106); HDL Cholesterol 80 mg/dL (40-60); Sodium 142 mmol/L (136-145); Total Protein 7.7 g/dL (6.4-8.2); Triglyceride 83 mg/dL (<150)
[2023-10-28 14:12] LABS: Potassium 2.2 mmol/L (3.5-5.1)
[2023-10-28 14:28] LABS: FREE T4 1.46 ng/dL (0.76-1.46)
== END 2023-10-28 05:15 | disposition home or self-care (01) ==
LOC: LBO 05:14
PROVIDERS: PCP Nurse Practitioner; Referring Provider Nurse Practitioner; Visit Provider Nurse Practitioner
DX: I10 Essential (primary) hypertension (principal); E03.9 Hypothyroidism, unspecified; N18.30 Chronic kidney disease, stage 3 unspecified; E78.5 Hyperlipidemia, unspecified
CPT/HCPCS: 36415; 80053; 80061; 84439; 84443; 85025

== ENCOUNTER 2023-11-02 15:21 | Outpatient (CLI) | payer MEDICARE, BC, OTHER, SELFPAY ==
[2023-11-02 14:23] LABS: Anion Gap 7.8 mmol/L (3-11); BUN 11 mg/dL (7-18); CO2 32.2 mmol/L (21.0-32.0); Calcium 8.8 mg/dL (8.5-10.1); Chloride 102 mmol/L (98-107); Estimated GFR 57.31 (mL/min/1.73m2); Glucose 98 mg/dL (74-106); Potassium 3.2 mmol/L (3.5-5.1); Sodium 142 mmol/L (136-145)
== END 2023-11-02 15:22 | disposition home or self-care (01) ==
LOC: LBO 11-05 15:21
PROVIDERS: PCP Nurse Practitioner; Visit Provider Nurse Practitioner
DX: E87.6 Hypokalemia (principal)
CPT/HCPCS: 36415; 80048

== ENCOUNTER 2023-11-16 13:55 | Outpatient (REF) | payer MEDICARE, BC, OTHER, SELFPAY ==
[2023-11-16 16:11] LABS: Potassium 3.1 mmol/L (3.5-5.1)
== END 2023-11-16 13:56 | disposition home or self-care (01) ==
LOC: LBN 13:55
PROVIDERS: PCP Nurse Practitioner; Visit Provider Nurse Practitioner
DX: E87.6 Hypokalemia (principal)
CPT/HCPCS: 84132

== ENCOUNTER 2024-02-04 03:22 | Outpatient (CLI) | payer MEDICARE, BC, OTHER, SELFPAY ==
[2024-02-04 14:34] LABS: Anion Gap 8.2 mmol/L (3-11); BUN 14 mg/dL (7-18); CO2 30.8 mmol/L (21.0-32.0); CREATININE 1.2 mg/dL (0.55-1.02); Calcium 9.5 mg/dL (8.5-10.1); Chloride 97 mmol/L (98-107); Estimated GFR 46.05 (mL/min/1.73m2); Glucose 112 mg/dL (74-106); Potassium 3.7 mmol/L (3.5-5.1); Sodium 136 mmol/L (136-145)
== END 2024-02-04 03:23 | disposition home or self-care (01) ==
LOC: LBO 03:22
PROVIDERS: PCP Nurse Practitioner; Referring Provider Nurse Practitioner; Visit Provider Nurse Practitioner
DX: E87.6 Hypokalemia (principal)
CPT/HCPCS: 36415; 80048

== ENCOUNTER 2024-03-22 00:55 | Outpatient (CLI) | payer MEDICARE, BC, OTHER, SELFPAY ==
--- NOTE | 2024-03-22 06:45 | DI.MAMMO_ITS ---
Exam(s) MG MAMMO SCREENING 60 MIN DUR EXAM: MG MAMMO SCREENING 60 MIN DUR CLINICAL HISTORY: breast cancer screening,Z12.39,Z85.3,PERSONAL H/O BREAST CA. TECHNIQUE: Bilateral full field digital CC and MLO mammographic images were obtained with 3D tomosyn thesis and utilizing computer aided detection (CAD). COMPARISON: Prior mammograms were reviewed. There has been prior left mastectomy. FINDINGS: There has been no significant change in the appearance and distribution of the fibroglandular tissue the right breast. Small asymmetric partially calcified density in the right breast located 7 cm in from the nipple on t he CC view is unchanged 2014 and therefore benign. There are no new spiculated masses nor new malignant appearing microcalcification groups. There is no significant architectural distortion nor skin thickening-retraction. IMPRESSION: Stable benign-appearing right breast findings. No radiographic evidence of malignancy. BI-RADS Category 2 - Benign Findings Breast Density - Category B - Scattered areas of fibroglandular density Breast density Category C or D implies that the patient has dense breast tissue. Dense breast tissue can make it harder to find cancer on a mammogram. Dense breast tissue is also associated with an incr eased risk of breast cancer. This information about the result of the mammogram report was provided to the patient to raise their awareness. Use this report when you speak with the patient about their risks for breast cancer, which includes their family history. At that time, you may recommend additional screening tests (Ultrasoun d or MRI) as these tests may add significant information. A negative radiographic report should not delay biopsy if a dominant or clinically suspicious mass is present. Up to ten percent of cancers are not identified on mammography. A negative report may reinforce clinical impression. Adenosis and dense breasts may obscure an underlying neoplasm. False positive reports average 6 to 10%. Patient will receive a letter notifying them of these results.
== END 2024-03-22 01:15 ==
LOC: DI 00:55
PROVIDERS: PCP Nurse Practitioner; Visit Provider Nurse Practitioner
DX: Z85.3 Personal history of malignant neoplasm of breast (principal); Z12.31 Encounter for screening mammogram for malignant neoplasm of breast
CPT/HCPCS: 77063; 77067

== ENCOUNTER 2024-11-07 13:06 | Outpatient (CLI) | payer MEDICARE, BC, OTHER, SELFPAY ==
[2024-11-07 15:28] LABS: Abs Immature Grans 0.01 10^3/uL (0.0-0.06); Absolute Basophil Count 0.02 10^3/uL (0.0-0.2); Absolute Eosinophil Count 0.12 10^3/uL (0.0-0.7); Absolute Lymphocyte Count 1.89 10^3/uL (1.2-3.4); Absolute Monocyte Count 0.39 10^3/uL (0.1-0.8); Absolute Neutrophil Count 2.59 10^3/uL (1.2-6.7); Basophils % 0.4 %; Eosinophils % 2.4 %; HCT 38.7 % (36.0-46.0); HGB 12.6 g/dL (11.2-15.7); Immature Grans % 0.2 %; Lymphocytes % 37.6 %; MCH 29.3 pg (27.0-33.0); MCHC 32.6 % (32.0-36.0); MCV 90 fL (80-95); MPV 9.2 fL (8.0-11.0); Monocytes % 7.8 %; Neutrophils % 51.6 %; Platelet Count 309 10^3/uL (130-400); RDW 13.1 % (11.7-14.6); RDW-SD 42.7 fL; WBC 5.02 10^3/uL (4.4-10.8)
[2024-11-07 16:44] LABS: Anion Gap 7.4 mmol/L (3-11); BUN 24 mg/dL (7-18); CO2 27.6 mmol/L (21.0-32.0); CREATININE 1.1 mg/dL (0.55-1.02); Calcium 9.5 mg/dL (8.5-10.1); Chloride 105 mmol/L (98-107); Glucose 91 mg/dL (74-106); Potassium 3.8 mmol/L (3.5-5.1); Sodium 140 mmol/L (136-145)
== END 2024-11-07 13:07 | disposition home or self-care (01) ==
PROVIDERS: PCP Nurse Practitioner; Visit Provider Nurse Practitioner
DX: M47.816 Spondylosis without myelopathy or radiculopathy, lumbar region (principal); M54.50 Low back pain, unspecified; G89.29 Other chronic pain
CPT/HCPCS: 36415; 80048; 85025

== ENCOUNTER 2025-01-19 00:58 | Outpatient (CLI) | payer MEDICARE, BC, OTHER, SELFPAY ==
[2025-01-19 08:42] LABS: Abs Immature Grans 0.01 10^3/uL (0.0-0.06); HCT 34.7 % (36.0-46.0); HGB 10.7 g/dL (11.2-15.7); Immature Grans % 0.2 %; MCH 27.0 pg (27.0-33.0); MCHC 30.8 % (32.0-36.0); MCV 88 fL (80-95); MPV 9.7 fL (8.0-11.0); Platelet Count 322 10^3/uL (130-400); RBC 3.96 10^6/uL (3.93-5.22); RDW 13.3 % (11.7-14.6); RDW-SD 42.8 fL; WBC 4.21 10^3/uL (4.4-10.8)
[2025-01-19 08:54] LABS: Glucose Negative (Negative)
[2025-01-19 09:21] LABS: C & S Indicated? No; RBC Negative HPF (0-2)
[2025-01-19 09:29] LABS: ALT 17 U/L (14-59); AST 14 U/L (15-37); Albumin 3.5 g/dL (3.4-5.0); Alkaline Phosphatase 91 U/L (46-116); Anion Gap 10.6 mmol/L (3-11); BUN 14 mg/dL (7-18); Bilirubin, Total 0.5 mg/dL (0.2-1.0); CO2 27.4 mmol/L (21.0-32.0); Calcium 8.8 mg/dL (8.5-10.1); Calculated LDL 71 mg/dL (<100); Chloride 105 mmol/L (98-107); Cholesterol 151 mg/dL (<200); Estimated GFR 64.63 (mL/min/1.73m2); Glucose 96 mg/dL (74-106); HDL Cholesterol 65 mg/dL (>or=50); Potassium 4.0 mmol/L (3.5-5.1); Sodium 143 mmol/L (136-145); TSH 6.20 uIU/mL (0.36-3.74); Total Protein 6.7 g/dL (6.4-8.2); Triglyceride 75 mg/dL (<150)
[2025-01-19 13:07] LABS: Hemoglobin A1C 5.4 % (<5.7)
== END 2025-01-19 00:59 | disposition home or self-care (01) ==
LOC: LBO 00:59
PROVIDERS: PCP Nurse Practitioner; Referring Provider Family Medicine; Visit Provider Family Medicine
DX: R53.83 Other fatigue (principal); E78.5 Hyperlipidemia, unspecified; Z13.9 Encounter for screening, unspecified; D64.9 Anemia, unspecified; R73.9 Hyperglycemia, unspecified; E03.9 Hypothyroidism, unspecified
CPT/HCPCS: 36415; 80053; 80061; 81003; 81015; 83036; 84443; 85025